=== PATIENT | female | born 1960 | race Caucasian/White ===

== ENCOUNTER 2025-02-10 20:28 | Inpatient (IN) | payer BC, SELFPAY ==
[2025-02-10] VITALS (9 sets, daily range): BP systolic 92–131; BP diastolic 53–69; PULSE 66–76; RESP 14–18; TEMP 36.7; O2SAT 95–99
--- OUTSIDE RECORDS SUMMARY | 2025-02-10 10:18 | XMS_ITS | Continuity of Care Document ---
Author Name [facility] Organization [facility] Care Team Providers Care Automatic Buffing Wheel Former Name Role Phone [facility] Unavailable Unavailable Problems Combined list of problems from Department of Defense and Veterans Affairs facilities. It does not include entries that were removed or entered in error. Problem Status Onset Date Problem Type Date of Resolution Comments Source Personal history of COVID-19 Inactive 08/02/2023 Condition DoD ALLERGIC RHINITIS Inactive 01/28/2016 Condition DoD Blood Pressure Isolated Elevated Inactive 01/28/2016 Condition DoD visit for: follow-up exam Inactive 01/20/2006 Condition visit for: follow-up exam DoD skin symptoms Inactive 01/19/2006 Condition skin symptom s DoD Encounters Combined list of: 1) Encounters from Department of Veterans Affairs facilities going backup to the last 18 months, not all VA inpatient encounters are included; 2) Encounters from the Department of Defense facilities going backup to 280 months. Location Location Details Encounter Type Encounter Number Reason For Visit Attending Provider ADM Date DC Date Status Disposition Source Theater Facility OUTPATIENT [id number] 01/19 Released w/o Limitations [facility] OUTPATIENT [id number] 01/20 Released w/o Limitations [facility] OUTPATIENT [id number] Theater Provider 01/27 Released w/o Limitations [facility] OUTPATIENT [id number] 6 Theater Provider 04/08 Sick at Home/Quarter s Theater Facilit y Social History Combined list of available smoking, tobacco, and other social history from Department of Defense and Veterans Affairs facilities. Social History Type Response Date Comment Sourc e This section is an empty social history section. DoD
--- OUTSIDE RECORDS SUMMARY | 2025-02-10 20:40 | XMS_ITS | Clinical Summary ---
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 Gender Identity Not on file Sexual Orientation Not on file Plan of Treatment Health Maintenance Due Date Last Done Comments Breast Cancer Screening-Mammogram 1960 Cervical Cancer Screening 1960 Colon Cancer Screening-Colonoscopy 1960 Depression Screening 1960 Hepatitis C Screening 1960 DTaP/Tdap/Td Vaccine (1 - Tdap) 1971 Hepatitis B Screening 1978 Regular Well Visit/Exam 18-64 1978 Zoster Vaccine (2 of 2) 09/07/2020 07/13/2020 Influenza Vaccine (#1) 2025 03/20/2019 Pneumococcal vaccine <65 Aged Out No longer eligible based on patient's age to complete this topic Insurance [facility] Care Teams Cooler Worker Relationship Specialty Start Date End Date Clinton Patricia MD PCP - General 07/24/18
--- OUTSIDE RECORDS SUMMARY | 2025-02-10 20:40 | XMS_ITS | Clinical Summary ---
Author Organization [facility] Address [address] [place] [address] Care Team Providers Care Solutions Delivery Consultant Name Role Phone Clinton Patricia MD Primary Care Provider [phone] Source Comments [facility],non-owned Affiliates and Associated Physician Practices is amultiple site organization consisting of ambulatory clinics and hospital sitesin [place], [place], [place] and [place]. This disclosure is being madepursuant to the Care Everywhere program and may not contain all information available regarding this patient. Last updated 18.[facility] Allergies Active Allergy Reactions Criticality Noted Date Comments Codeine Nausea and/or Vomiting 01/13/2011 Medications * Be aware that medications may not be up to date on this document. Alwaysverify current medications with the patient. valACYclovir (VALTREX) 1 GM tablet Take 2 tabs po bid x 1 day. Take first dose on am of procedure. 20 tablet 1 10/12/2018 Active Active Problems Problem Noted Date Diagnosed Date Menopause present 07/16/2019 Body mass index (bmi) 26.0-26.9, adult 9 Immunizations Immunization Administration Dates Next Due INFLUENZA VACCINE 03/20/2019 Family History Medical History Relation Name Comments Asthma Neg Hx CVA Neg Hx Cancer - Breast Neg Hx Cancer - Other Neg Hx Cancer - Skin, Melanoma Neg Hx Cancer - Skin, Non Melanoma Neg Hx Eczema Neg Hx Hemophilia Neg Hx Psoriasis Neg Hx Social History Tobacco Use Types Packs/Day Years Used Date Smoking Tobacco: Never Smokeless Tobacco: Never Alcohol Use Standard Drinks/Week Comments Yes 3 (1 standard drink = 0.6 oz pur e alcohol) Monthly Comments Unknown Sex and Gender Information Value Date Recorded Sex Assigned at Not on file 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 Gender Identity Not on file Sexual Orientation Not on file Plan of Treatment Health Maintenance Due Date Last Done Comments COLOGUARD (AGES 45-75) - COL ON CA SCREENING 1960 COLON MONITORING 1960 COLONOSCOPY - COLON CA SCREENING 1960 CT COLONOGRAPHY - COLON CA SCREENING 1960 Colorectal Cancer Screening 1960 FIT - COLON CA SCREENING 1960 FLEX SIG - COLON CA SCREENING 1960 LIPID TESTING 1960 MAMMOGRAM 1960 HIV SCREENING 1975 HEPATITIS C SCREENING 07/23/1978 DTAP/TDAP/TD VACCINES (1 - Tdap) 1979 PAP with HPV 1990 PNEUMOCOCCAL VACCINE 50+ (1 of 1 - PCV) 2010 ZOSTER VACCINE (1 of 2) 2010 COVID-19 VACCINE (1 - 2023-2 5 season) 2024 DEPRESSION SCREENING 06/20/2024 INFLUENZA VACCINE (#1) 2025 03/20/2019 Respiratory Syncytial Virus (RSV) Vaccine Pt: or over 60 yrs (1 - 1-dose 75+ series) 2035 HEPATITIS B VACCINE Aged Out No longe r eligible based on patient's age to complete this topic HIB VACCINE Aged Out No longer eligi ble based on patient's age to complete this topic HPV VACCINE Aged Out No longer eligi ble based on patient's age to complete this topic MENINGOCOCCAL (Group B) VACC INE SHARED DECISION-MAKING Aged Out No longer eligibl e based on patient's age to complete this topic MENINGOCOCCAL GROUPS A/C/Y/W VACCINE Aged Out No longer eligible b ased on patient's age to complete this topic Insurance [facility] Care Teams Solutions Delivery Consultant Relationship Specialty Start Date End Date Clinton Patricia MD [address] [place] [address] PCP - General 06/30/18
--- NOTE | 2025-02-10 20:56 | CTR_ITS ---
PROCEDURE INFORMATION: Exam: CT Abdomen And Pelvis With Contrast Exam date and time: 02/10/2025 9:28 PM Age: 64 years old Clinical indication: Abdominal pain; Localized; C/O severe lower abd pain TECHNIQUE: Imaging protocol: Computed tomography of the abdomen and pelvis with contrast. Radiation optimization: All CT scans at this facility use at least one of these dose optimization techniques: automated exposure control; mA and/or kV adjustment per patient size (includes targeted exams where dose is matched to clinical indication); or iterative reconstruction. Contrast material: OMNI 350; Contrast volume: 100 ml; Contrast route: INTRAVENOUS (IV); COMPARISON: No relevant prior studies available. RADIATION DOSE METRICS: Total DLP (mGy-cm): 500.58 FINDINGS: Lower chest: Heart size normal. Mild dependent atelectasis. A small fat containing Bochdalek's hernia right Liver: Normal. No mass. Gallbladder and biliary ducts: Normal. No calcified stones. Common bile duct measures a 6.7 mm in diameter within limits for patient's age. Pancreas: Normal. No ductal dilation. Spleen: Normal. No splenomegaly. 1.5 cm accessory splenic nodule Adrenal glands: Normal. No mass. Kidneys and ureters: 5.8 mm peripheral cysts mid right kidney. No follow-up imaging. 5.8 mm and a 3.3 mm nonobstructing calculi right kidney. 3.9 mm cyst mid left kidney Stomach and bowel: There is distension fundus and upper body of the stomach. This contains fluid. There is a small hiatal hernia containing fluid there is also fluid within a mildly distended distal esophagus. There is a twisting of the proximal junction of the body and antrum of the stomach. There is narrowing of the lumen this area there is partial obstruction proximally . There is wall thickening and thickened folds involving the antrum of the stomach with narrowing of the lumen. There is whirling of the small bowel loops mid and lower abdomen upper pelvis with wall thickening some surrounding stranding and possibly some interloop. Also in this area is a thickened loop sigmoid colon with surrounding stranding and fluid. Can not entirely pneumatosis There is mesenteric edema in this area. This is adjacent to the thickened loops of small bowel. Dilated cecum is seen in the mid abdomen with its base directed superiorly and to the left. Transverse colon, descending colon not distended. Rectum nondistended. Appendix: Not visualized. Intraperitoneal space: Unremarkable. No free air. No significant fluid collection. Vasculature: Mild atherosclerosis.. No abdominal aortic aneurysm. Lymph nodes: Unremarkable. No enlarged lymph nodes. Urinary bladder: Unremarkable as visualized. Reproductive: Multi fibroid uterus. Maybe some intrauterine Bones/joints: Degenerative Soft tissues: Unremarkable. CT/CT abdomen pelvis w con* [id number] IMPRESSION: Findings most consistent with possible internal hernia in the mid and lower abdomen and upper pelvis This contains small bowel, sigmoid colon and cecum. There are thickened loops of the small bowel and especially sigmoid colon. Sigmoid wall is markedly edematous. There is surrounding stranding and fluid and there maybe some pneumatosis . The antrum of the stomach is also involved. There is a twisting between the body and antrum narrowing partially obstructing stomach. Antrum has thickened wall. There is also reflux from the stomach into the esophagus. 3. Multi fibroid uterus. Centrally maybe mildly dilated intrauterine canal measuring 9 mm Nonemergent surgical consult recommended.
--- NOTE | 2025-02-10 20:58 | ED_ITS ---
HPI - Abdominal Pain 2 General: Chief Complaint: Abdominal Pain Stated Complaint: Lower ABD Pain Time Seen by Provider: 02/10/25 20:32 History of Present Illness: Patient is a 64-year-old female presenting with lower abdominal pain and bilateral flank pain that she describes as 'achy kidneys.' She reports having had kidney stones in the past and recognizes similar symptoms. Patient had fever yesterday. She describes constant headache and dysuria with urgency and difficulty voiding. After drinking cold water, she experienced 'super intense pain' in her bladder area that she rates as 10/10, which temporarily prevented her from standing. Pain has since decreased to 7/10. She denies hematuria, vomiting, or diarrhea. Patient reports a urine culture was collected earlier today, results pending. Related Data Home Medications ?Medication ?Instructions ?Recorded ?Confirmed atorvastatin 10 mg tablet (Lipitor) 10 mg PO DAILY 02/10/25 bisoprolol 2.5 1 tab PO DAILY 02/10/2501/19 4/25 mg-hydrochlorothiazide 6.25 mg tablet Previous Rx's ?Medication ?Instructions ?Recorded nitrofurantoin 100 mg PO Q12H 7 days #14 ca ps 02/10/25 monohydrate/macrocrystals 100 mg capsule (Macrobid) phenazopyridine 100 mg tablet 100 mg PO TID PRN pain 6 doses #6 02/10/25 (Pyridium) tabs Allergies Allergy/AdvReac Type Severity Reaction Status Date / Time codeine Allergy ADR-Vomitin Verified 02/10/25 20:43 g PFSH ED 2 PFSH: Social History Smoking and tobacco/nicotine status: never used tobacco/nicotine Physical Exam 2 Const: COMMON NORMALS: no acute distress GENERAL APPEARANCE: cooperative; not frail appearing HENMT: COMMON NORMALS: normocephalic, atraumatic and Normal external nose present HEAD & SCALP: normocephalic and atraumatic FACE & SINUS: normal facial exam and face symmetric NOSE: Normal external nose present Eye: COMMON NORMALS: Equal, round and reactive pupils present and EOMs intact bilaterally PUPIL: Yes Equal, round and reactive pupils present Neck/C-Spine: GENERAL: Yes trachea midline Chest: CHEST: Yes Symmetrical chest wall rise Resp: COMMON NORMALS: normal respiratory effort, No retractions, No use of accessory muscles and clear to auscultation bilaterally AUSCULTATION: clear to auscultation bilaterally Cardio: COMMON NORMALS: regular rate and regular rhythm RATE: regular rate RHYTHM: regular rhythm GI: COMMON NORMALS: Normal to inspection, nondistended, normoactive bowel sounds present PALPATION: Yes Tenderness to palpation present (GI) Details: LLQ and RLQ and Yes Guarding due to palpation present (GI) Extremity: COMMON NORMALS: no pedal edema Neuro: VERONICA COMA SCALE: document GCS findings Veronica coma scale eye opening: Spontaneous [place] coma scale verbal response: Orientated [place] coma scale motor response: Obey commands [place] coma scale total score: 15 S ENSORY EXAM: Yes extremities (intact) Psych: COMMON NORMALS: speech normal SPEECH: Yes normal speech Skin: COMMON NORMALS: no rashes or lesions noted GENERAL SKIN EXAM: no rashes or lesions noted Course 2 Vital Signs: Vital signs: Vital Signs Temperature 98.0 F 02/10/25 20:38 Pulse Rate 76 02/11/25 00:43 Respiratory Rate 14 02/11/25 00:12 Blood Pressure 137/54 02/11/25 00:43 Pulse Oximetry 96 02/11/25 00:43 Oxygen Delivery Me thod Room Air 02/11/25 00:12 MDM - Abdominal Pain Medical Decision Making Vitals have been stable. Pain improved after morphine Toradol and Zofran here. She received a liter bolus of fluid. Her CBC is not remarkable. Sodium is 130, bicarb is 20. Glucose 145. Abdominal pelvic CT shows thickened loops of small bowel especially sigmoid colon with sigmoid wall thickening and edema. This may be an internal hernia. Spoke with surgery. Dr. Callahan reviewed the images. With these findings, recommendations are to the OR for laparoscopy. Patient agrees. OR team has been called. He will come to evaluate the patient. Lab Data 02/10/25 21:03 02/10/25 21:03 Labs/Radiology: Radiology Impressions Abdomen/Pelvis CT 02/10/25 20:56 IMPRESSION: Findings most consistent with possible internal hernia in the mid and lower abdomen and upper pelvis This contains small bowel, sigmoid colon and cecum. There are thickened loops of the small bowel and especially sigmoid colon. Sigmoid wall is markedly edematous. There is surrounding stranding and fluid and there maybe some pneumatosis . The antrum of the stomach is also involved. There is a twisting between the body and antrum narrowing partially obstructing stomach. Antrum has thickened wall. There is also reflux from the stomach into the esophagus. 3. Multi fibroid uterus. Centrally maybe mildly dilated intrauterine canal measuring 9 mm Nonemergent surgical consult recommended. ADDENDUM: 02/11/25 0041 The impression should state emergent surgical consult recommended. This discussed with physician. COMMENT: THIS REPORT CONTAINS FINDINGS THAT MAY BE CRITICAL TO PATIENT CARE. The exam findings were verbally communicated by me to FLORENCIO LANGFORD via telephone conference at 12:39 AM CDT on 02/11/2025. The findings were acknowledged and understood. Laboratory Results WBC 9.92 10^3/uL (3.29-11.43) 02/10/25 21:03 RBC 4.24 10^6/uL (3.85-5.65) 02/10/25 21:03 Hgb 12.90 g/dL (11.27-16.99) 02/10/25 21:03 Hct 35.9 % (36-47) L 02/10/25 21:03 MCV 84.7 fl (85-98) L 02/10/25 21:03 MCH 30.4 pg (27-33) 02/10/25 21:03 MCHC 35.9 g/dL (30-55) 02/10/25 21:03 RDW 13.2 % (12.1-15.1) 02/10/25 21:03 Plt Count 220 10^3/cmm (157-399) 02/10/25 21:03 MPV 11.1 fL (7.4-10.4) H 02/10/25 21:03 Neut % (Auto) 84.4 % 02/10/25 21:03 Lymph % (Auto) 7.7 % 02/10/25 21:03 Riley % (Auto) 6.8 % 02/10/25 21:03 Eos % (Auto) 0.0 % 02/10/25 21:03 Baso % (Auto) 0.3 % 02/10/25 21:03 Neut # (Auto) 8.38 10^3/uL (1.8-7.7) H 02/10/25 21:03 Lymph # (Auto) 0.8 10^3/uL (0.8-4.8) 02/10/25 21:03 Riley # (Auto) 0.7 10^3/uL (0.2-0.9) 02/10/25 21:03 Eos # (Auto) 0.0 10^3/uL (0.0-0.8) 02/10/25 21:03 Baso # (Auto) 0.0 10^3/uL (0.0-0.1) 02/10/25 21:03 Nucleated RBC % (auto) 0 % 02/10/25 21:03 Nucleated RBCs # 0.0 /100WBC 02/10/25 21:03 Sodium 130 mmol/L (136-145) L 02/10/25 21:03 Potassium 3.6 mmol/L (3.5-5.1) 02/10/25 21:03 Chloride 93 mmol/L (98-107) L 02/10/25 21:03 Carbon Dioxide 20 mmol/L (22-29) L 02/10/25 21:03 Anion Gap 20.6 (5-19) H 02/10/25 21:03 BUN 8 mg/dL (8-23) 02/10/25 21:03 Creatinine 0.5 mg/dL (0.5-0.9) 02/10/25 21:03 GFR Calculation 124.2 mL/min (90-130) 02/10/25 21:03 Glucose 145 mg/dL (65-115) H 02/10/25 21:03 Calculated Osmolality 271 mOsm/kg (285-295) L 02/10/25 21:03 Lactic Acid 1.4 mmol/L (0.5-2.2) 02/10/25 21:03 Calcium 9.5 mg/dL (8.5-10.5) 02/10/25 21:03 Total Bilirubin 1.5 mg/dL (0.15-1.2) H 02/10/25 21:03 AST 76 U/L (0-32) H 02/10/25 21:03 ALT 85 U/L (0-33) H 02/10/25 21:03 Alkaline Phosphatase 87 U/L (35-105) 02/10/25 21:03 C-Reactive Protein 197.1 mg/L (0.0-4.9) H 02/10/25 21:03 Total Protein 7.4 g/dL (6.6-8.7) 02/10/25 21:03 Albumin 3.7 g/dL (3.5-5.2) 02/10/25 21:03 Globulin 3.7 g/dL (1.3-4.6) 02/10/25 21:03 Lipase 10 U/L (13-60) L 02/10/25 21:03 Urine Color [place] (Yellow) A 02/10/25 22:20 Urine Appearance Clear (CLEAR) 02/10/25 22:20 Urine pH 5.5 (5-7) 02/10/25 22:20 Ur Specific Bishop 1.072 (1.005-1.030) H 02/10/25 22:20 Urine Protein Trace (Negative) A 02/10/25 22:20 Urine Glucose (UA) Negative (Normal) 02/10/25 22:20 Urine Ketones 2+ (Negative) H 02/10/25 22:20 Urine Blood Negative (Negative) 02/10/25 22:20 Urine Nitrate Positive (Negative) A 02/10/25 22:20 Urine Bilirubin 1+ (Negative) H 02/10/25 22:20 Urine Urobilinogen 1.0 mg/dL (Negative) 02/10/25 22:20 Ur Leukocyte Esterase 1+ (Negative) A 02/10/25 22:20 Urine RBC 0-2 /hpf (0-2) 02/10/25 22:20 Urine WBC 0-5 /hpf (0-5) 02/10/25 22:20 Ur Squamous Epith Cells 0-5 /hpf (0-5) 02/10/25 22:20 Urine Bacteria None seen /hpf (NONE) 02/10/25 22:20 Hyaline Casts 0.81 /lpf 02/10/25 22:20 All radiology interpretation(s) finalized by discharge Discharge Plan Discharge Patient Disposition: Admitted As Inpatient Clinical Impression: Internal hernia Condition: Fair Coding Level of Care Code ED Agricultural Scientist for Neville Tamayo
[2025-02-10] MEDS: ondansetron 2 mg/ML SDV 2 mL 4 MG IVP (21:18)
[2025-02-10] MEDS: morphine 4 mg/mL SDV 1 mL IVP ×2 (21:18→23:06)
[2025-02-10] MEDS: iohexol 350 mg/mL 500 mL Btl (per mL) IV (21:30)
[2025-02-10 21:41] LABS: Hematocrit 35.9 % (36-47); Hemoglobin 12.90 g/dL (11.27-16.99); Mean Corpuscular HGB Conc 35.9 g/dL (30-55); Mean Corpuscular Hemoglobin 30.4 pg (27-33); Mean Corpuscular Volume 84.7 fl (85-98); Nucleated Red Blood Cells % 0 %; Platelet Count 220 10^3/cmm (157-399); Red Blood Count 4.24 10^6/uL (3.85-5.65); White Blood Count 9.92 10^3/uL (3.29-11.43)
[2025-02-10 21:56] LABS: Lactic Sepsis W/Reflex 1.4 mmol/L (0.5-2.2)
[2025-02-10 21:57] LABS: Alanine Aminotransferase 85 U/L (0-33); Albumin Level 3.7 g/dL (3.5-5.2); Alkaline Phosphatase 87 U/L (35-105); Anion Gap 20.6 (5-19); Aspartate Amino Transferase 76 U/L (0-32); Blood Urea Nitrogen 8 mg/dL (8-23); Calcium 9.5 mg/dL (8.5-10.5); Carbon Dioxide 20 mmol/L (22-29); Chloride 93 mmol/L (98-107); Creatinine Clr Calc Pharmacy 106.5563; Globulin 3.7 g/dL (1.3-4.6); Glucose 145 mg/dL (65-115); Lipase 10 U/L (13-60); Osmolality Calculated 271 mOsm/kg (285-295); Potassium 3.6 mmol/L (3.5-5.1); Sodium 130 mmol/L (136-145); Total Protein 7.4 g/dL (6.6-8.7)
[2025-02-10 22:36] LABS: Glucose Urine UA Negative (Normal); Nitrate Urine Positive (Negative)
[2025-02-10 22:42] LABS: Add Urine Microscopic? YES
[2025-02-11] VITALS (100 sets, daily range): BP systolic 81–186; BP diastolic 38–80; PULSE 55–110; RESP 12–26; TEMP 36.4–38.9; O2SAT 94–100; BMI 27.1
--- NOTE | 2025-02-11 00:04 | P.CONIM_ITS ---
History of Present Illness History of Present Illness Rola Palm is a 64 year old female Medications/Allergies Home Medications ?Medication ?Instructions ?Recorded ?Confirmed ?Last Taken ?Type atorvastatin 10 mg tablet (Lipitor) 10 mg PO DAILY 02/10/25 Unknown History bisoprolol 2.5 1 tab PO DAILY 02/10/2501/19 Unknown History mg-hydrochlorothiazide 6.25 mg tablet nitrofurantoin 100 mg PO Q12H 7 days #14 ca ps 02/10/25 02/10/25 Unknown Rx monohydrate/macrocrystals 100 mg capsule (Macrobid) phenazopyridine 100 mg tablet 100 mg PO TID PRN pain 6 doses #6 02/10/25 02/10/25 Unknown Rx (Pyridium) tabs Allergies Allergy/AdvReac Type Severity Reaction Status Date / Time codeine Allergy ADR-Vomitin Verified 02/10/25 20:43 g PFSH Acute 2 PFSH: Social History Smoking and tobacco/nicotine status: never used tobacco/nicotine Vitals/I&O/Wt Last Vital Signs Temp 98.0 F 02/10/25 20:38 Pulse 76 02/10/25 23:08 Resp 18 02/10/25 23:08 BP 128/63 02/10/25 23:08 Pulse Ox 95 02/10/25 23:08 O2 Del Method Room Air 02/10/25 23:08 02/10/25 02/10/25 02/11/25 14:59 22:59 06:59 Intake Total 1000 / 1000 Balance 1000 / 1000 Weight last 48 hrs Weight 154 lb Data 02/10/25 21:03 02/10/25 21:03 A&P PDMP PDMP Reviewed: Not Reviewed Coding Level of Care Code Acute Code for Chg Fwd
--- NOTE | 2025-02-11 00:05 | PM.HP ---
Providers/Chief Complaint Chief Complaint: Lower ABD Pain History of Present Illness Rola Palm is a 64 year old female no abdominal surgeries and no prior relevant medical history who presents with CT scan findings concerning with an internal hernia. Per radiology stomach, small bowel, colon may be involved.Patient reports suprapubic pain mostly. No nausea, no vomiting. Had a recent bowel movement. Passing gas. On exam abdomen is soft, tender suprapubically, mildly distended, not peritonitic. Medications/Allergies Home Medications ?Medication ?Instructions ?Recorded ?Confirmed ?Last Taken ?Type atorvastatin 10 mg tablet (Lipitor) 10 mg PO DAILY 02/10/25 02/10/25 Unknown History bisoprolol 2.5 1 tab PO DAILY 02/10/25 02/10/25 Unknown History mg-hydrochlorothiazide 6.25 mg tablet nitrofurantoin 100 mg PO Q12H 7 days #14 caps 02/10/25 02/10/25 Unknown Rx monohydrate/macrocrystals 100 mg capsule (Macrobid) phenazopyridine 100 mg tablet 100 mg PO TID PRN pain 6 doses #6 02/10/25 02/10/25 Unknown Rx (Pyridium) tabs Allergies Allergy/AdvReac Type Severity Reaction Status Date / Time codeine Allergy ADR-Vomitin Verified 02/10/25 20:43 g PFSH Acute PFSH: Social History Smoking and tobacco/nicotine status: never used tobacco/nicotine Vitals/I&O/Wt Last Vital Signs Temp 98.0 F 02/10/25 20:38 Pulse 76 02/10/25 23:08 Resp 18 02/10/25 23:08 BP 128/63 02/10/25 23:08 Pulse Ox 95 02/10/25 23:08 O2 Del Method Room Air 02/10/25 23:08 02/10/25 02/10/25 02/11/25 14:59 22:59 06:59 Intake Total 1000 / 1000 Balance 1000 / 1000 Weight last 48 hrs Weight 154 lb Physical Exam Narrative: Chest: Unlabored breathing room air. No lymphadenopathy. Heart: Regular rate and rhythm. Abdomen: Soft, suprapubic tenderness, nondistended. Nonperitoneal Data 02/10/25 21:03 02/10/25 21:03 A&P Assessment and plan 1. Internal hernia: Plan: 64-year-old female who presents with an internal hernia. Discussed risk and benefits and patient agreed to proceed with exploratory laparotomy, possible bowel resection, possible ostomy, possible ABThera. I had an extensive discussion with the patient and she understands that if there are large segments of bowel that are necrotic this may not be compatible with life. She also understands that she may need to be close temporarily for a couple days with an ABThera for reexploration. I have also explained that she is a risk of anastomotic leak and we perform a bowel resection with anastomosis given the emergent nature of the case. She understand that she may have a permanent ostomy depending on the extent of the nonviable bowel. Her spouse was not available for this discussion. PDMP PDMP Reviewed: Not Reviewed Attestations Medical Necessity Statement*: Internal hernia, possible bowel ischemia Coding Level of Care Code 79527 Diagnoses Internal hernia K45.8
[2025-02-11 00:10] LABS: Specific Gravity, Urine 1.072 (1.005-1.030)
[2025-02-11 00:13] LABS: UA Slide Review UA Slide Review Perf
[2025-02-11] MEDS: piperacillin-tazobactam 3.375 GM in sodium chloride 0.9% (plus) 50 ML IV (00:22)
--- NOTE | 2025-02-11 00:31 | ANES.PREANE2 ---
Pre-Anesthetic Assessment Height/Weight: Height 5 ft 3 in Weight 154 lb Temp Pulse Resp BP Pulse Ox O2 Del Method 98.0 F 77 14 147/68 98 Room Air 02/10/25 20:38 02/11/25 00:12 02/11/25 00:12 02/11/25 00:12 02/11/25 00:12 02/11/25 00:12 Preop Diagnosis: Incarcerated hernia Was Beta Raul taken within 24 hours: Yes Was Clonidine taken within 24 hours: N/A Exam alert, oriented x 3, clear to auscultation bilaterally and regular rate & rhythm Airway Submandibular: within normal limits Cervical ROM: within normal limits Mallampati: Class II Dentition: full Anesthetic Plan ASA status: 3E Anesthesia: General Other: Patient presents to the ER tonight with incarcerated hernia No prior issues with anesthesia NPO since 4 PM, ate yogurt. Patient states that she has not been throwing up and denies any nausea currently Untreated ARLEEN Hypertension on bisoprolol?HCTZ. Preop BP 147/68 Labs reviewed, hemoglobin 12.9, NA 130, K+ 3.6 Plan for GETA with RSI Patient has ICU bed Medications/Allergies Home Medications ?Medication ?Instructions ?Recorded ?Confirmed ?Last Taken ?Type atorvastatin 10 mg tablet (Lipitor) 10 mg PO DAILY 02/10/25 02/10/25 Unknown History bisoprolol 2.5 1 tab PO DAILY 02/10/25 02/10/25 Unknown History mg-hydrochlorothiazide 6.25 mg tablet nitrofurantoin 100 mg PO Q12H 7 days #14 caps 02/10/25 02/10/25 Unknown Rx monohydrate/macrocrystals 100 mg capsule (Macrobid) phenazopyridine 100 mg tablet 100 mg PO TID PRN pain 6 doses #6 02/10/25 02/10/25 Unknown Rx (Pyridium) tabs Allergies Allergy/AdvReac Type Severity Reaction Status Date / Time codeine Allergy ADR-Vomitin Verified 02/10/25 20:43 g Current Medications Generic Name Dose Route Start Last Admin Trade Name Freq PRN Reason Stop Dose Admin Lactated Ringer's 1,000 mls @ 125 mls/hr 02/11/25 00:15 02/11/25 00:27 Lactated Ringers IV 125 mls/hr .Q8H ORTEGA Administration Piperacillin Sod/Tazobactam 50 mls @ 100 mls/hr 02/11/25 00:15 02/11/25 00:22 Sod 3.375 gm/ Sodium Chloride IV 02/11/25 00:44 100 mls/hr ONCE ONE Administration Protocol PFS Anesthesia Social History Smoking and tobacco/nicotine status: never used tobacco/nicotine Data Anesthesia 02/10/25 21:03 02/10/25 21:03 Short CBC 02/10/25 Range/Units 21:03 WBC 9.92 (3.29-11.43) 10^3/uL Hgb 12.90 (11.27-16.99) g/dL Hct 35.9 L (36-47) % MCV 84.7 L (85-98) fl Plt Count 220 (157-399) 10^3/cmm Neut % (Auto) 84.4 % Neut # (Auto) 8.38 H (1.8-7.7) 10^3/uL BMP 02/10/25 21:03 Sodium 130 L Potassium 3.6 Chloride 93 L Carbon Dioxide 20 L BUN 8 Creatinine 0.5 Glucose 145 H Calcium 9.5 Liver Function 02/10/25 Range/Units 21:03 Total Bilirubin 1.5 H (0.15-1.2) mg/dL AST 76 H (0-32) U/L ALT 85 H (0-33) U/L Alkaline Phosphatase 87 (35-105) U/L Albumin 3.7 (3.5-5.2) g/dL Urine 02/10/25 Range/Units 22:20 Urine Color [place] A (Yellow) Urine Appearance Clear (CLEAR) Urine pH 5.5 (5-7) Ur Specific [place] 1.072 H (1.005-1.030) Urine Protein Trace A (Negative) Urine Glucose (UA) Negative (Normal) Urine Ketones 2+ H (Negative) Urine Nitrate Positive A (Negative) Urine Bilirubin 1+ H (Negative) Ur Leukocyte Esterase 1+ A (Negative) Urine RBC 0-2 (0-2) /hpf Urine WBC 0-5 (0-5) /hpf Coags 02/10/25 21:03 C-Reactive Protein 197.1 H
--- NOTE | 2025-02-11 02:01 | P.BOP_ITS ---
Date of Procedure: 02/11/2025 Surgeon: Dr. Callahan Book Canvasser(s): N/A Procedure(s) performed: Exploratory laparotomy, reduction of internal hernia, abdominal washout, temporary closure with ABThera. Findings of the procedure(s): Internal hernia with a 40cm segment of ischemic bowel secondary to a pericolonic abscess secondary to sigmoid diverticulitis. Sent cultures from the OR. Washed out the abdomen with 4 L of warm normal saline. Ran bowel 5 times from cecum to ligament of Treitz. Small bowel pinked up appropriately and appeared viable at end of case. Inspected cecum, ascending colon, transverse colon, descending colon, sigmoid colon, and rectum which all appeared viable. She does have a segment of sigmoid diverticulitis without william perforation. The stomach and duodenum were also viable. Confirmed NG tube positioning in the stomach intraoperatively. Decided to close temporarily with an ABThera to examine the small bowel in the sigmoid colon in 24 to 48 hours to ensure she does not need a small bowel resection or a Vale's procedure. Estimated blood loss: 20cc Specimen(s) removed: Culture sent to microbiology from intra-abdominal abscess Post-operative diagnosis: Internal hernia secondary to a pericolonic abscess secondary to sigmoid diverticulitis
--- NOTE | 2025-02-11 02:06 | ANE.PACU2 ---
Inpatient post-anesthesia follow up: Airway intact: Yes Vital signs: Temperature 97.5 F Pulse Rate 61 Respiratory Rate 12 Blood Pressure 101/52 Pulse Oximetry 99 Oxygen Delivery Me thod Mechanical Ventila tion Oxygen Flow Rate Fraction of Inspir ed Oxygen 30 Hydration adequate: Yes Nausea and vomiting: No Pain level: Other (intubated and sedated) Mental status: Baseline Additional Comments: patient remains intubated and sedated with plans to return to OR Wed.
--- NOTE | 2025-02-11 02:07 | PM.OP ---
Operative Report Date of procedure: February 11, 2025 Surgeon: [place] Callahan MD Related Problem List Diagnoses 1. Diverticulitis of both large and small intestine with abscess: 2. Internal hernia: 3. Abdominal abscess:
--- NOTE | 2025-02-11 02:14 | P.MISC_ITS ---
Miscellaneous Note Note: Spouse updated
--- NOTE | 2025-02-11 02:14 | PM.MISC ---
Miscellaneous Note Note: Spouse updated
--- NOTE | 2025-02-11 02:19 | XRR_ITS ---
PROCEDURE INFORMATION: Exam: XR Chest Exam date and time: 02/11/2025 2:27 AM Age: 64 years old Clinical indication: Device placement; Ett placement (vent status); Prior surgery; Surgery date: Post-operative (0-2 days); Surgery type: Exploratory abdominal surgery this a. M. Check S/P ett and og placement. ; Additional info: Ng placement and vent TECHNIQUE: Imaging protocol: Radiologic exam of the chest. Views: 1 view. COMPARISON: CT abdomen pelvis w con* [id number] 02/10/2025 9:28 PM FINDINGS: Tubes, catheters and devices: Endotracheal tube with the tip projecting 2.9 cm above the emerson. Enteric tube coursing the esophagus and gastroesophageal junction, terminating within the lateral stomach. Lungs: Unremarkable. No consolidation. Pleural spaces: Unremarkable. No pleural effusion. No pneumothorax. Heart/Mediastinum: Unremarkable. No cardiomegaly. Bones/joints: Unremarkable. Gastrointestinal tract: Nonspecific upper abdominal bowel gas pattern. XR/XR chest 1V portable [id number] IMPRESSION: Endotracheal and enteric tubes in satisfactory position.
[2025-02-11] MEDS: midazolam hcl 100 MG/100 ML BAG IV ×2 (02:30→21:19)
[2025-02-11] MEDS: fentaNYL 1,000 MCG/100 ML BAG 2.5 MCG IV (02:30)
[2025-02-11] MEDS: propofol 1,000 MG/100 ML INJ 8.38 MG IV (02:55)
--- NOTE | 2025-02-11 03:14 | PC.NURSE ---
Patient arrived from OR to ICU 4. Surgeon and hospitalist at bedside. Surgeon stated he does not want patient to be able to move Hospitalist at bedside and gave verbal orders for all drips and to titrate per MAR in order to sedate patient properly. Patient was awake, eyes open, attempting to move legs, and blinked eyes in response to being asked if she was in pain by hospitalist.
[2025-02-11 03:26] LABS: ABG PCO2 34.6 mmHg (35-45); ABG PH Result 7.46 (7.35-7.45); Alveolar-Arterial Oxygen Gradi 14.3 mmHg (5-10); Arterial Blood Gas Hematocrit 32.1 % (37-47); Blood Gas Allen Test Pos; Blood Gas Operator Identificat BD; Blood Gas Sample Site Brachial, right; Blood Gas Sample Type Arterial; Blood Gas Tidal Volume 0.40; Carboxyhemoglobin 1.1 %THgb (0.4-20.1); Glucose Level-ABG 132.0 mg/dL (70-115); HCO3 ABG 24.3 mmol/L (22-26); Ionized Calcium Level - ABG 1.2 mmol/L (1.1-1.4); Methemoglobin 0.8 % (0.4-1.5); Oxygen Saturation ABG > 99.1; PEEP 5.0 cmH20; PO2 ABG 131.0 mmHg (80.0-100.0); PO2 FiO2 Ratio Arterial Blood 327; Potassium Level - ABG 3.6 mmol/L (3.5-5.0); Sodium Level - ABG 135.0 mmol/L (131-143)
[2025-02-11] MEDS: norepinephrine 4 MG/250 ML BAG 7.5 MG IV (03:27)
--- NOTE | 2025-02-11 04:03 | XRR_ITS ---
PROCEDURE INFORMATION: Exam: XR Chest Exam date and time: 02/11/2025 2:27 AM Age: 64 years old Clinical indication: Other vascular access device placement or adjustment; Central line, non-tunnelled; Check S/P central line placement TECHNIQUE: Imaging protocol: Radiologic exam of the chest. Views: 1 view. COMPARISON: CR (CHEST, ) 02/11/2025 2:27 AM FINDINGS: Tubes, catheters and devices: Right central catheter terminates near the atriocaval junction probably just within the right atrium. Endotracheal and gastric tubes unchanged. They are in satisfactory position. Lungs: Unremarkable. No consolidation. Pleural spaces: Unremarkable. No pleural effusion. No pneumothorax. Heart/Mediastinum: No change in the heart or mediastinum. Bones/joints: Unremarkable. XR/XR chest 1V portable [id number] IMPRESSION: Life support lines as described above.
--- NOTE | 2025-02-11 04:05 | PM.CCN ---
Critical Care Event Note Called to the bedside in ICU. Hospitalist asking for central line placement due to multiple drips coming out of the OR for this patient. Right IJ line placed without complication. See procedure note. X-ray confirms placement. Critical Care Time Code activated: No Critical Care Time (min): 0 Procedures Central Line Placement^ Right IJ: Time out performed: No Patient placed on monitor/pulse ox: Yes MD prep: mask, gown and gloves Central line prep: Chlorhexidine scrub and sterile drapes applied Local anesthesia used: lidocaine 1% Amount of anesthesia used (ml): 3 Ultrasound used for placement: Yes Central line lumen inserted: triple Post procedure: sutured in place, good blood return, all ports aspirated, flushed, capped and sterile dressing applied Post procedure x-ray: tip of catheter in good position and no pneumothorax seen Patient tolerated procedure: well and no complications Complications: none Coding Level of Care Code Acute Code for Neville Fwjamil
--- NOTE | 2025-02-11 04:23 | PM.CONSULT ---
Providers/Reason For Consult Consulting Physician/Specialty*: PATIENCE ASHU DO /HOSPITALIST Reason for Consult*: MEDICAL MANAGENT FOR abscessed diverticula/diverticulitis/ischemic colon Requesting Physician: KAILA FERRELL MD/SURGERY Attending Physician: Kaila Ferrell MD History of Present Illness History of Present Illness Rola Palm is a 64 year old female with no significant medical history who presented to the emergency room with complaints of lower abdominal pain that was presumed to be due to UTI and patient was placed on antibiotics out patient. Patient was not doing well and had taken a sip of water today with an excruciating pain at 10/10 for this reason patient came to the emergency room. CT scan was done and it was documented as an internal hernia. Surgery was consulted with Dr. Ferrell who looked at the CT and suspected an abscess. Patient was taken down to the surgery emergently. After the surgery Dr. Ferrell consulted hospitalist for medical management. Patient was intubated under general anesthesia during surgery abdomen was marked closed abscess was removed with some partial colectomy with abdominal washout. Patient while in the emergency room received a liter of normal saline and a dose of Zosyn at 3.375 g. In the surgery patient received another liter of fluid with lactated Ringer's and a dose of Ancef antibiotics I was consulted urgently as patient was being wheeled from the OR to ICU room for for an emergent medical management. Patient intubated abdomen not close of patient needing ICU level of care with sedation not to move for the next 48 hours till patient is going to go back into the OR to reassess the colon make sure that the colon is fine. I have seen and evaluated patient emergently spent 1 and half hours by the bedside monitoring the hemodynamics with blood pressure as patient needs sedation. Patient placed on Versed maxed out. Patient on fentanyl at 150 mics per hour. Patient was still waking up propofol was initiated blood pressure was getting soft in the 80s a liter of normal saline given bolus this is not able to hold Levophed initiated. It was been noted that in the OR postsurgery blood pressure dropped to 70s and patient had to be given a dose of silverio. At this time patient is having 5 IV pumps Infusing Levophed, fentanyl, Versed, propofol, IV fluid and blood pressure was stabilizing with MAP above 65. It becomes necessary to have a central line with the Levophed on board. Central line established. Blood culture x 4 sets ordered in ICU, lab studies with CMP, CBC, lactate, sed rate, magnesium and phosphorus, patient was given a loading dose of vancomycin 1500 mg for pharmacy to dose and treat. Pharmacy was communicated. Meropenem ordered at 1 g IV Q8. Patient was notably vomited after being intubated but it was not thought to have aspirated in the OR. In the setting abscessed colon from diverticular abscess becomes important to have a broad-spectrum antibiotics covering gram-negative and anaerobic's that we will be were taking care of with meropenem in the setting and vancomycin be in place because gram-positive can play a role also. On presentation patient had no white count but lecture on patient clinical profile warrants blood culture and all other aggressive process to have the patient taking good care of. Review of Systems Narrative: System review upon 10 organ reviewed we are somewhat limited because patient is sedated though initially able to open eyes verbalized pain although was review of system was limited. Medications/Allergies Home Medications ?Medication ?Instructions ?Recorded ?Confirmed ?Last Taken ?Type atorvastatin 10 mg tablet (Lipitor) 10 mg PO DAILY 02/10/25 02/10/25 Unknown History bisoprolol 2.5 1 tab PO DAILY 02/10/25 02/10/25 Unknown History mg-hydrochlorothiazide 6.25 mg tablet nitrofurantoin 100 mg PO Q12H 7 days #14 caps 02/10/25 02/10/25 Unknown Rx monohydrate/macrocrystals 100 mg capsule (Macrobid) phenazopyridine 100 mg tablet 100 mg PO TID PRN pain 6 doses #6 02/10/25 02/10/25 Unknown Rx (Pyridium) tabs Allergies Allergy/AdvReac Type Severity Reaction Status Date / Time codeine Allergy ADR-Vomitin Verified 02/10/25 20:43 g Current Medications Generic Name Dose Route Start Last Admin Trade Name Freq PRN Reason Stop Dose Admin Lactated Ringer's 1,000 mls @ 125 mls/hr 02/11/25 00:15 02/11/25 02:00 Lactated Ringers IV 0 mls/hr .Q8H ORTEGA Infusion Fentanyl 1,000 mcg in 100 mls @ 0 mls/hr 02/11/25 02:30 02/11/25 03:07 Sublimaze IV 150 mcg/hr .Q0M ORTEGA 15 mls/hr Protocol Titration Per Protocol Midazolam HCl 100 mg in 100 mls @ 0 mls/hr 02/11/25 02:30 02/11/25 03:10 Versed IV 6 mg/hr .Q0M ORTEGA 6 mls/hr Protocol Titration Per Protocol Propofol 1,000 mg in 100 mls @ 0 mls/hr 02/11/25 02:30 02/11/25 02:55 Diprivan IV 20 mcg/kg/min .Q0M ORTEGA 8.38 mls/hr Protocol Administration Per Protocol Sodium Chloride 1,000 mls @ 100 mls/hr 02/11/25 02:30 02/11/25 03:12 Sodium Chloride 0.9% IV 100 mls/hr .Q10H ORTEGA Administration Norepinephrine Bitartrate 4 mg in 250 mls @ 0 mls/hr 02/11/25 02:30 02/11/25 03:31 Levophed IV 4 mcg/min .Q0M ORTEGA 15 mls/hr Protocol Titration Per Protocol PFSH Acute PFSH: Social History Smoking and tobacco/nicotine status: never used tobacco/nicotine Vitals/I&O/Wt Last Vital Signs Temp 97.5 F L 02/11/25 03:45 Pulse 61 02/11/25 03:45 Resp 12 02/11/25 03:56 BP 108/55 02/11/25 03:45 Pulse Ox 99 02/11/25 03:56 O2 Del Method Mechanical Ventilation 02/11/25 03:45 FiO2 30 02/11/25 03:56 02/10/25 02/10/25 02/11/25 14:59 22:59 06:59 Intake Total 1000 / 1000 248.542 / 1248.542 Balance 1000 / 1000 248.542 / 1248.542 Weight last 48 hrs Weight 69.5 kg Weight 69.853 kg Physical Exam Narrative: Generally patient is relaxed but needed to be heavily sedated Patient intubated arriving in ICU sedated with fentanyl Versed and propofol HEENT normocephalic/atraumatic - Intubated with vent management TV 500/RR-14/PEEP-5/FiO2-40% Neck neck is supple Cardiovascular-heart rate is regular at average of 60s Lungs-lungs are clear, intubated Abdomen-soft, surgical abdomen with midline wound on close bed hooked to Wound VAC and draining serosanguineous material, no bowel sounds at this time -Cope to gravity draining clear urine, [place] yellow in color due to Pyridium outpatient Extremity well with no significant examination, no swelling has good pulses Neurology-nonfocal by the assessment of initial time prior to much sedation Patient able to verbalize needs such pain. Poor pills react to light at 4 mm pulpill gauge Urinary Catheter Management: Cope Latex: Cath Placed During This Visit: yes Urinary Catheter Date of Insertion: 02/11/25 Urinary Catheter Time of Insertion: 01:22 Data 02/10/25 21:03 02/10/25 21:03 ABG Interpretation 1: Textbook normal ABG My Interpretation: Text book normal ABG Other data: CT of abdomen and pelvics significant for abscessed diverticulitis A&P Assessment and plan 1. Abdominal abscess: 2. Diverticulitis of both large and small intestine with abscess: 3. Lower abdominal pain: 4. Hypotension after procedure: Plan: #1 Diverticulitis with colonic abscess and ischemia - Status post surgery by surgical team the primary team Dr. Ferrell - Hospitalist management for medical management continues upon resection of patient in ICU - Patient sedated with Versed and fentanyl and this was not enough, propofol added - Patient cannot move abdominal wound is not closed nasal NG hooked to low intermittent suction - Monitoring of hemodynamics was very closely maintaining good blood pressure in the setting of hypotension - Patient kept normotensive to perfuse surgical organ and to maintain good renal function - IV fluid and Levophed in place - Blood culture ordered and inflammatory markers ordered - Loading dose of vancomycin at 1500 mg for pharmacy to dose and manage - Meropenem in place - Strict n.p.o. - Right nasal NG tube to low intermittent wall suction - Strict bed rest until patient is taken back to the OR in 48 to 72 hours from now per surgery communication #2 Colonic abdominal abscess - Status post removal of abscess and partial colectomy with washout by surgery - Medical management by hospitalist follows with panculturing with blood - Antibiotics follows with vancomycin and meropenem - Patient did not have white count on presentation follow-up with lab studies - Maintain n.p.o. - Patient is with strict bedrest and not to be moved, surgical abdomen unclosed with a plan to revisit By surgery for status of colonic health prior to closing in 48 to 72 hours #3 Hypotension - Managed with a trial of bolus of IV normal saline at 1 L - Patient had had prior 1 L in the ED and another 1 L in the OR making a total of 3 L - Not enough but optimized with Levophed patient now stays normotensive #4 Lower abdominal pain - Secondary to diverticular abscess followed by surgical repair - Fentanyl IV drip to ease the pain and provide sedation #5 GI and DVT prophylaxis in place PDMP PDMP Reviewed: Last Reviewed 02/11/25 05:28 by Ai Santos MD Consult Attestations Medical Necessity Statement: Patient is with much medical acute problems postsurgery of an abscess with an open closed abdominal wound to reassess back in the OR after 48 to 72 hours will need at least 2 midnight stay in the hospital for further optimization of care patient meets inpatient criteria Critical Care Time: 1 hour and 30 minutes Coding Level of Care Code 93496 Diagnoses Abdominal abscess Diverticulitis of both large and small intestine with abscess K57.40 Lower abdominal pain R10.30 Hypotension after procedure I95.81 Time Spent (min) 90 Critical care time (in minutes): 90
[2025-02-11 05:27] LABS: Hematocrit 30.1 % (36-47); Hemoglobin 9.90 g/dL (11.27-16.99); Mean Corpuscular HGB Conc 32.9 g/dL (30-55); Mean Corpuscular Hemoglobin 30.0 pg (27-33); Mean Corpuscular Volume 91.2 fl (85-98); Platelet Count 209 10^3/cmm (157-399); Red Blood Count 3.30 10^6/uL (3.85-5.65); White Blood Count 5.38 10^3/uL (3.29-11.43)
[2025-02-11 05:52] LABS: Lactate (Lactic Acid level) 0.9 mmol/L (0.5-2.2)
[2025-02-11 05:55] LABS: Alanine Aminotransferase 60 U/L (0-33); Albumin Level 3.2 g/dL (3.5-5.2); Alkaline Phosphatase 70 U/L (35-105); Anion Gap 14.4 (5-19); Aspartate Amino Transferase 44 U/L (0-32); Blood Urea Nitrogen 8 mg/dL (8-23); Calcium 8.1 mg/dL (8.5-10.5); Carbon Dioxide 23 mmol/L (22-29); Chloride 101 mmol/L (98-107); Creatinine Clr Calc Pharmacy 106.3029; Globulin 2.5 g/dL (1.3-4.6); Glucose 129 mg/dL (65-115); Magnesium 1.6 mg/dL (1.7-2.3); Osmolality Calculated 280 mOsm/kg (285-295); Potassium 3.4 mmol/L (3.5-5.1); Sodium 135 mmol/L (136-145); Total Protein 5.7 g/dL (6.6-8.7)
[2025-02-11 06:11] LABS: CRP High Sensitivity Cardiac 26.710 mg/dL (0.0-0.3)
[2025-02-11] MEDS: pantoprazole 40 mg SDV IVP ×2 (06:24→17:02)
--- NOTE | 2025-02-11 07:17 | PHA.VACGOAL ---
Vancomycin Goal - Goal Vancomycin Goal:: 15-20 mg/L Vancomycin Indication:: Other (DIVERTICULITIS) - Therapy Current therapy:: Meropenem Day of therpy:: Day []of [] . Actual body weight (kg): 153 lb 3.54 oz - Data Labs: WBC 9.92 10^3/uL (3.29-11.43) 02/10/25 21:03 RBC 4.24 10^6/uL (3.85-5.65) 02/10/25 21:03 Hgb 12.90 g/dL (11.27-16.99) 02/10/25 21:03 Hct 35.9 % (36-47) L 02/10/25 21:03 MCV 84.7 fl (85-98) L 02/10/25 21:03 MCH 30.4 pg (27-33) 02/10/25 21:03 MCHC 35.9 g/dL (30-55) 02/10/25 21:03 RDW 13.2 % (12.1-15.1) 02/10/25 21:03 Sodium 135 mmol/L (136-145) L 02/11/25 04:07 Potassium 3.4 mmol/L (3.5-5.1) L 02/11/25 04:07 Chloride 101 mmol/L (98-107) 02/11/25 04:07 Carbon Dioxide 23 mmol/L (22-29) 02/11/25 04:07 Anion Gap 14.4 (5-19) 02/11/25 04:07 BUN 8 mg/dL (8-23) 02/11/25 04:07 Creatinine 0.5 mg/dL (0.5-0.9) 02/11/25 04:07 GFR Calculation 124.2 mL/min (90-130) 02/11/25 04:07 Last dialysis session:: N/A Treatment plan:: new consult Regimen:: LOADING DOSE OF 1500 MG X 1 MAINTENANCE DOSE OF 1000 MG Q12H PER TELEPHARMACY Follow up:: WILL CONTINUE TO MONITOR AND FOLLOW UP DAILY
[2025-02-11 07:43] LABS: Absolute Segmented Neutrophil 3.0 10/cmm (1.6-7.1); Atypical Lymphs 1.0 % (0-5); Band Neutrophils Absolute 1.7 10^3/cmm (0.0-1.2); Total Cells Counted 100 (0-100)
[2025-02-11] MEDS: meropenem 1,000 mg SDV 1000 MG IVP ×3 (07:52→23:00)
--- NOTE | 2025-02-11 09:08 | P.PN_ITS ---
Subjective 2 Subjective: Patient seen in the morning, currently on sedation with propofol fentanyl and midazolam On Levophed at 2 mics Patient s/p laparotomy by the surgery team due to diverticulitis with colonic abscesses and ischemia, currently doing well on wound suction draining serosanguineous fluid Vitals/I&O/Wt Last Vital Signs Temp 97.5 F L 02/11/25 03:45 Pulse 70 02/11/25 07:45 Resp 12 02/11/25 07:42 BP 155/73 02/11/25 07:45 Pulse Ox 98 02/11/25 07:45 O2 Del Method Mechanical Ventilation 02/11/25 03:45 FiO2 30 02/11/25 07:42 02/10/25 02/11/25 02/11/25 22:59 06:59 14:59 Intake Total 1000 / 1000 283.722 / 1283.722 551.333 / 551.333 Output Total 555 / 555 Balance 1000 / 1000 -271.278 / 728.722 551.333 / 551.333 Weight last 48 hrs Weight 69.5 kg Weight 69.5 kg Weight 69.853 kg Physical Exam 2 Narrative: General: Patient seen sedated and on mechanical ventilation HEENT: Normocephalic, atraumatic, breathing through mechanical ventilation at minimal settings with FiO2 of 30% and good tidal volumes Cardio: Regular rate rhythm, normal S1-S2, no murmurs rubs gallops, JVD normal Respiratory: Good bilateral air entry through mechanical ventilation, no wheezes no rhonchi appreciated GI: Abdomen soft, with ABThera in place draining serosanguineous, no distention found and normal bowel sounds Neuro: Unable to assess as the patient is on sedation Behavior: Patient on sedation Extremities: Pulses 2+, no edema, no cyanosis, mild pallor positive Skin: Grossly unremarkable exam Urinary Catheter Management: Cope Latex: Cath Placed During This Visit: yes Reason for Continuing Indwelling Catheter: Accurate Measurement of Urinary Output in Critically Ill Patients Urinary Catheter Date of Insertion: 02/11/25 Urinary Catheter Time of Insertion: 01:22 Data 02/11/25 04:07 02/11/25 04:07 Micro: Microbiology 02/11/25 06:33 Blood Culture - Preliminary Blood SPECIMEN COLLECTED 02/11/25 06:26 Blood Culture - Preliminary Blood SPECIMEN COLLECTED 02/11/25 04:07 Blood Culture - Preliminary Blood SPECIMEN COLLECTED 02/11/25 04:06 Blood Culture - Preliminary Blood SPECIMEN COLLECTED A&P Assessment and plan 1. Abdominal abscess: 2. Diverticulitis of both large and small intestine with abscess: 3. Lower abdominal pain: 4. Hypotension after procedure: Plan: Diverticulitis with colonic abscess and ischemia - Status post surgery by surgical team the primary team Dr. Callahan - Hospitalist management for medical management continues - Patient sedated with Versed fentanyl and propofol, to taper down sedation slowly with evaluation of patient neurological status and agitation accordingly - Blood culture ordered, preliminary negative - Continue vancomycin and meropenem, and then tailor according to cultures and patient's clinical status - N.p.o. and NGT to suction - Continue adequate analgesia Hypotension/on Levophed currently better - Currently on Levophed and to continue with the MAP target above 65, taper down sedation since it can affect the blood pressure, and with respect to MAP also titrate Levophed - Patient kept normotensive to perfuse surgical organ and to maintain good renal function Daily spontaneous awakening and breathing trial to wean off from the vent slowly Patient when ready to extubate, then subsequently OT PT eval, early mobilization and incentive spirometry to introduce Nutrition to introduce once cleared by the surgery PDMP PDMP Reviewed: Not Reviewed Attestations 2 Medical Necessity Statement*: Patient will stay as per discussion with the primary team for the management of chronic abscess s/p laparotomy, currently intubated and sedated Time Spent in Patient Care: 16 - 35 minutes (>than 50% of time sp ent in counselling and/or direct pt care on unit) . Critical Care Time: The high probability of a clinically significant, sudden or life threatening deterioration of the patient's [] system(s) required my full and direct attention, intervention and personal management. The critical care time is as shown. This time is in addition to time spent performing any reported procedures but includes the following: [x] Data and vital sign review and interpretation [x] Patient assessment, examination and intervention [x] Documentation [x] Medication orders and management Critical Care Time (min): 35 Coding Level of Care Code Critical Care >/= 30 minutes Diagnoses Abdominal abscess Diverticulitis of both large and small intestine with abscess K57.40 Lower abdominal pain R10.30 Hypotension after procedure I95.81
--- NOTE | 2025-02-11 11:23 | P.PN_ITS ---
Subjective 2 Subjective: ABThera: Serous output No leukocytosis Sedated intubated On and off pressors related to sedation Vitals/I&O/Wt Last Vital Signs Temp 97.5 F L 02/11/25 03:45 Pulse 83 02/11/25 11:00 Resp 17 02/11/25 11:00 BP 104/44 02/11/25 11:00 Pulse Ox 96 02/11/25 11:00 O2 Del Method Mechanical Ventilation 02/11/25 11:00 FiO2 30 02/11/25 11:00 02/10/25 02/11/25 02/11/25 22:59 06:59 14:59 Intake Total 1000 / 1000 283.722 / 1283.722 983.249 / 983.249 Output Total 555 / 555 100 / 100 Balance 1000 / 1000 -271.278 / 728.722 883.249 / 883.249 Weight last 48 hrs Weight 153 lb 3.54 oz Weight 153 lb 3.54 oz Weight 154 lb Physical Exam 2 Narrative: Chest: On vent Heart: Regular rate and rhythm. Abdomen: Soft, ABThera with serous output Urinary Catheter Management: Cope Latex: Cath Placed During This Visit: yes Reason for Continuing Indwelling Catheter: Accurate Measurement of Urinary Output in Critically Ill Patients Urinary Catheter Date of Insertion: 02/11/25 Urinary Catheter Time of Insertion: 01:22 Data 02/12/25 03:15 02/12/25 03:15 Micro: Microbiology 02/11/25 06:33 Blood Culture - Preliminary Blood SPECIMEN COLLECTED 02/11/25 06:26 Blood Culture - Preliminary Blood SPECIMEN COLLECTED 02/11/25 04:07 Blood Culture - Preliminary Blood SPECIMEN COLLECTED 02/11/25 04:06 Blood Culture - Preliminary Blood SPECIMEN COLLECTED A&P Assessment and plan 1. Diverticulitis of both large and small intestine with abscess: 2. Abdominal abscess: 3. Internal hernia: Plan: 64-year-old female status post ex lap temporarily closed. Keep intubated and sedated until reexploration on 02/12/2025. PDMP PDMP Reviewed: Not Reviewed Attestations 2 Medical Necessity Statement*: N/A Coding Level of Care Code 27246 Diagnoses Diverticulitis of both large and small intestine with abscess K57.40 Abdominal abscess Internal hernia K45.8
[2025-02-11] MEDS: acetaminophen 1,000 MG/100 ML PIGGYBACK 400 MG IV (15:10)
--- NOTE | 2025-02-11 15:20 | PC.NURSE ---
Fever - Patietn developed a fever of 102.1... Nurse attempted to alert Primary Dr medina but was unable to reach him. Nurse alerted Dr phelan hospitalist, received orders for IV tylenol and repeat blood cultures.
--- NOTE | 2025-02-11 18:30 | PC.NURSE ---
SHift SUmmary: Uneventful shift Rested in bed throughout the day. Frequently turned. Was able to wean off of propofol, and reduce versed from 6mg/hr down to 3mg/hr. Patient grimaces, guards abdomen, and has hypertension when fentanyl is lower than 150mcg. Fever: high as 102.1. came down to 98.1 after IV acetaminophen given. Another set of blood cultures was drawn after fever development. Outputs: Urine: 425 - urine output has started to slow down near end of shift. Gastric/nare: 100 Abdominal wound vac: 125 serousanguinous (increasingly serous)
[2025-02-11] MEDS: norepinephrine 4 MG/250 ML BAG 15 MG IV (22:17)
[2025-02-12] VITALS (104 sets, daily range): BP systolic 83–154; BP diastolic 42–71; PULSE 55–107; RESP 12–25; TEMP 36.3–39.1; O2SAT 96–100
[2025-02-12 03:49] LABS: Hematocrit 32.5 % (36-47); Hemoglobin 10.50 g/dL (11.27-16.99); Mean Corpuscular HGB Conc 32.3 g/dL (30-55); Mean Corpuscular Hemoglobin 30.3 pg (27-33); Mean Corpuscular Volume 93.9 fl (85-98); Nucleated Red Blood Cells % 0 %; Platelet Count 216 10^3/cmm (157-399); Red Blood Count 3.46 10^6/uL (3.85-5.65); White Blood Count 8.00 10^3/uL (3.29-11.43)
[2025-02-12 04:08] LABS: Slide Review Slide Review Perform
[2025-02-12 04:12] LABS: Alanine Aminotransferase 40 U/L (0-33); Albumin Level 2.9 g/dL (3.5-5.2); Alkaline Phosphatase 107 U/L (35-105); Anion Gap 13.1 (5-19); Aspartate Amino Transferase 24 U/L (0-32); Blood Urea Nitrogen 7 mg/dL (8-23); Calcium 8.2 mg/dL (8.5-10.5); Carbon Dioxide 21 mmol/L (22-29); Chloride 108 mmol/L (98-107); Creatinine Clr Calc Pharmacy 132.8786; Globulin 3.3 g/dL (1.3-4.6); Glucose 98 mg/dL (65-115); Osmolality Calculated 284 mOsm/kg (285-295); Potassium 4.1 mmol/L (3.5-5.1); Sodium 138 mmol/L (136-145); Total Protein 6.2 g/dL (6.6-8.7)
[2025-02-12] MEDS: pantoprazole 40 mg SDV IVP ×2 (05:00→18:01)
[2025-02-12] MEDS: meropenem 1,000 mg SDV 1000 MG IVP ×2 (07:46→15:49)
--- NOTE | 2025-02-12 08:38 | P.PN_ITS ---
Subjective 2 Subjective: Off pressors today No leukocytosis ABThera: Serous output Family at bedside Vitals/I&O/Wt Last Vital Signs Temp 99.9 F H 02/12/25 04:45 Pulse 71 02/12/25 06:00 Resp 13 02/12/25 08:05 BP 112/51 02/12/25 06:00 Pulse Ox 99 02/12/25 08:05 O2 Del Method Mechanical Ventilation 02/12/25 06:00 FiO2 30 02/12/25 08:05 02/11/25 02/12/25 02/12/25 22:59 06:59 14:59 Intake Total 1644.916 / 2794.525 1107.138 / 3901.663 3.500 / 3.500 Output Total 900 / 1200 350 / 1550 Balance 744.916 / 1594.525 757.138 / 2351.663 3.500 / 3.500 Weight last 48 hrs Weight 158 lb 11.725 oz Weight 153 lb 3.54 oz Weight 153 lb 3.54 oz Weight 154 lb Physical Exam 2 Narrative: Chest: On vent Heart: Regular rate and rhythm. Abdomen: Soft, ABThera with serous output Urinary Catheter Management: Cope Latex: Cath Placed During This Visit: yes Reason for Continuing Indwelling Catheter: Accurate Measurement of Urinary Output in Critically Ill Patients Urinary Catheter Date of Insertion: 02/11/25 Urinary Catheter Time of Insertion: 01:22 Data 02/12/25 03:15 02/12/25 03:15 Micro: Microbiology 02/11/25 06:33 Blood Culture - Preliminary Blood NEGATIVE TO DATE 02/11/25 06:26 Blood Culture - Preliminary Blood NEGATIVE TO DATE 02/11/25 04:06 Blood Culture - Preliminary Blood NEGATIVE TO DATE 02/11/25 04:07 Blood Culture - Preliminary Blood NEGATIVE TO DATE 02/11/25 15:28 Blood Culture - Preliminary Blood SPECIMEN COLLECTED 02/11/25 15:28 Blood Culture - Preliminary Blood SPECIMEN COLLECTED 02/11/25 13:30 Gram Stain - Final Sputum - Endotracheal Wash 02/11/25 01:35 Gram Stain - Final Abdomen A&P Assessment and plan 1. Diverticulitis of both large and small intestine with abscess: 2. Abdominal abscess: 3. Internal hernia: Plan: 64-year-old female who presented with an internal hernia secondary to a large intra-abdominal abscess secondary to sigmoid diverticulitis. Will plan for reexploration today. Had an extensive discussion with the family and the spouse. Discussed risk and benefits and patient's and siblings have agreed to proceed with opening of recent exploratory laparotomy, possible bowel resection, possible ostomy, possible closure, possible flex sigmoidoscopy, possible EGD. They understand that if we identify a perforation in the sigmoid colon she will need a Vale's procedure. They understand there is a risk of anastomotic leak and we perform a small bowel resection. PDMP PDMP Reviewed: Not Reviewed Attestations 2 Medical Necessity Statement*: Mechanical ventilation, reexploration of the abdomen today Coding Level of Care Code 47266 Diagnoses Diverticulitis of both large and small intestine with abscess K57.40 Abdominal abscess Internal hernia K45.8
--- NOTE | 2025-02-12 13:27 | P.PN_ITS ---
Subjective 2 Subjective: Off pressors today and doing well No leukocytosis however intermittent febrile episodes over 24 hours and surgery onboard for it ABThera: Serous output Family at bedside Vitals/I&O/Wt Last Vital Signs Temp 101.4 F H 02/12/25 12:45 Pulse 79 02/12/25 12:45 Resp 12 02/12/25 12:45 BP 106/48 02/12/25 12:45 Pulse Ox 100 02/12/25 12:45 O2 Del Method Mechanical Ventilation 02/12/25 12:45 FiO2 30 02/12/25 12:45 02/11/25 02/12/25 02/12/25 22:59 06:59 14:59 Intake Total 1644.916 / 2794.525 1107.138 / 3901.663 27.836 / 27.836 Output Total 900 / 1200 350 / 1550 300 / 300 Balance 744.916 / 1594.525 757.138 / 2351.663 -272.164 / -272.164 Weight last 48 hrs Weight 72 kg Weight 69.5 kg Weight 69.5 kg Weight 69.853 kg Physical Exam 2 Narrative: General: Patient seen sedated and on mechanical ventilation HEENT: Normocephalic, atraumatic, breathing through mechanical ventilation at minimal settings and good tidal volumes Cardio: Regular rate rhythm, normal S1-S2, no murmurs rubs gallops, JVD normal Respiratory: Good bilateral air entry through mechanical ventilation, no wheezes no rhonchi appreciated GI: Abdomen soft, with ABThera in place draining serosanguineous, no distention found and normal bowel sounds Neuro: Unable to assess as the patient is on sedation Behavior: Patient on sedation Extremities: Pulses 2+, no edema, no cyanosis, mild pallor positive Skin: Grossly unremarkable exam Urinary Catheter Management: Cope Latex: Cath Placed During This Visit: yes Reason for Continuing Indwelling Catheter: Accurate Measurement of Urinary Output in Critically Ill Patients Urinary Catheter Date of Insertion: 02/11/25 Urinary Catheter Time of Insertion: 01:22 Data 02/12/25 03:15 02/12/25 03:15 Micro: Microbiology 02/11/25 13:30 Gram Stain - Final Sputum - Endotracheal Wash Sputum Culture - Preliminary 02/11/25 01:35 Gram Stain - Final Abdomen Anaerobic Culture - Preliminary 02/11/25 06:33 Blood Culture - Preliminary Blood NEGATIVE TO DATE 02/11/25 06:26 Blood Culture - Preliminary Blood NEGATIVE TO DATE 02/11/25 04:06 Blood Culture - Preliminary Blood NEGATIVE TO DATE 02/11/25 04:07 Blood Culture - Preliminary Blood NEGATIVE TO DATE 02/11/25 15:28 Blood Culture - Preliminary Blood SPECIMEN COLLECTED 02/11/25 15:28 Blood Culture - Preliminary Blood SPECIMEN COLLECTED A&P Assessment and plan 1. Abdominal abscess: 2. Diverticulitis of both large and small intestine with abscess: 3. Lower abdominal pain: 4. Hypotension after procedure: Plan: Diverticulitis with colonic abscess and ischemia - Status post surgery by surgical team the primary team Dr. Callahan - Hospitalist management for medical management continues - Patient sedated with Versed fentanyl and propofol, to taper down sedation slowly with evaluation of patient neurological status and agitation accordingly - Blood culture ordered, preliminary negative - Continue vancomycin and meropenem, and then tailor according to cultures and patient's clinical status - N.p.o. and NGT to suction - Continue adequate analgesia - keep MAP above 65mmhg Hypotension/off Levophed -maintain MAP target above 65 - Patient kept normotensive to perfuse surgical organ and to maintain good renal function Daily spontaneous awakening and breathing trial to wean off from the vent slowly Patient when ready to extubate, then subsequently OT PT eval, early mobilization and incentive spirometry to introduce Nutrition to introduce once cleared by the surgery PDMP PDMP Reviewed: Not Reviewed Attestations 2 Medical Necessity Statement*: Patient will stay in the hospital as per primary team discretion further management of intra-abdominal abscess Time Spent in Patient Care: 16 - 35 minutes (>than 50% of time sp ent in counselling and/or direct pt care on unit) . Critical Care Time: The high probability of a clinically significant, sudden or life threatening deterioration, as referenced in this documentation, required my full and direct attention, intervention and personal management. The critical care time shown is in addition to time spent performing any reported separately billable procedures and includes the following: [x] Data and vital sign review and interpretation [x ] Patient assessment, examination and intervention [x] Medication orders and management [x] Patient/Family updates as able [x] Care Coordination and Documentation. Coding Level of Care Code Critical Care >/= 30 minutes Diagnoses Abdominal abscess Diverticulitis of both large and small intestine with abscess K57.40 Lower abdominal pain R10.30 Hypotension after procedure I95.81
--- NOTE | 2025-02-12 13:38 | P.ANESUD_ITS ---
Pre-Anesthetic Update Pre-Anesthetic Assessment: Date of Surgery/Procedure: 02/12/25 Preop Rhea gnosis: internal hernia Proposed Procedure: Operation Date: 02/11/25 01:00 Proposed Procedures p Exploratory Laparotomy(Not Applicable) - Chico Callahan MD Operation Date: 02/12/25 14:25 Proposed Procedures p Exploratory Laparotomy(Not Applicable) - Chico Callahan MD s Laparoscopic Small Bowel Resection-Ostomy, closure, and flex sig(Not Applicable) - Chico Callahan MD s EGD(Not Applicable) - Chico Callahan MD s Sigmoidoscopy(Not Applicable) - Chico Callahan MD Changes from Pre-Anesthetic Assessment: Patient is currently on VC AC and ICU. Patient has been receiving fentanyl and Versed gtt. Vitals have been stable but patient has been febrile all day long. Patient's spouse and brother and [id number] are currently in ICU room. Discussed with them risk of anesthesia and plan to remain intubated and come back to ICU with slow wean once patient's abdomen is closed. ASA 4 Last Intake: Intake Last Liquid Date 02/10/25 Last Liquid Time 19:00 Last Solid Date 02/10/25 Last Solid Time 19:00 Labs Last 48hrs: Short CBC 02/10/25 02/11/25 02/12/25 Range/Units 21:03 04:07 03:15 WBC 9.92 5.38 8.00 (3.29-11.43) 10^ 3/uL Hgb 12.90 9.90 L 10.50 L (11.27-16.99) g/ dL Hct 35.9 L 30.1 L 32.5 L (36-47) % MCV 84.7 L 91.2 D 93.9 (85-98) fl Plt Count 220 209 216 (157-399) 10^3/c mm Neut % (Auto) 84.4 76.1 % Neut # (Auto) 8.38 H 6.09 (1.8-7.7) 10^3/u L BMP 02/10/25 02/11/25 02/12/25 21:03 04:07 03:15 Sodium 130 L 135 L 138 Potassium 3.6 3.4 L 4.1 Chloride 93 L 101 108 H Carbon Dioxide 20 L 23 21 L BUN 8 8 7 L Creatinine 0.5 0.5 0.4 L Glucose 145 H 129 H 98 Calcium 9.5 8.1 L 8.2 L Liver Function 02/10/25 02/11/25 02/12/25 Range/Units 21:03 04:07 03:15 Total Bilirubin 1.5 H 0.9 0.4 (0.15-1.2) mg/dL AST 76 H 44 H 24 (0-32) U/L ALT 85 H 60 H 40 H (0-33) U/L Alkaline Phosphata se 87 70 107 H (35-105) U/L Albumin 3.7 3.2 L 2.9 L (3.5-5.2) g/dL Urine 02/10/25 Range/Units 22:20 Urine Color [place] A (Yellow) Urine Appearance Clear (CLEAR) Urine pH 5.5 (5-7) Ur Specific Gravit y 1.072 H (1.005-1.030) Urine Protein Trace A (Negative) Urine Glucose (UA) Negative (Normal) Urine Ketones 2+ H (Negative) Urine Nitrate Positive A (Negative) Urine Bilirubin 1+ H (Negative) Ur Leukocyte Aimee ase 1+ A (Negative) Urine RBC 0-2 (0-2) /hpf Urine WBC 0-5 (0-5) /hpf Coags 02/10/25 02/11/25 21:03 04:07 ESR 26 H C-Reactive Protein 197.1 H C-React Prot High Sens 26.710 H ABG 02/11/25 03:15 Specimen Type Arterial Sample Site Brachial, right ABG pH 7.46 H ABG pCO2 34.6 L ABG pO2 131.0 H ABG PO2/FiO2 Ratio 327 ABG HCO3 24.3 ABG O2 Saturation > 99.1 ABG Base Excess 0.6 A-a O2 Gradient 14.3 H O2 Delivery Device Vent FiO2 40.0 Tidal Volume 0.40 PEEP 5.0 Vitals: Temperature 101.4 F H 02/12/25 12:45 Temperature Source Axillary 02/12/25 12:45 Pulse Rate 79 02/12/25 12:45 Pulse Rhythm Regular 02/12/25 12:00 Pulse Strength 3+ Normal 02/12/25 12:00 Respiratory Rate 12 02/12/25 12:45 Respiratory Effort Mechanically Vent ilated 02/12/25 12:00 Respiratory Depth Normal 02/12/25 12:00 Blood Pressure 106/48 02/12/25 12:45 Blood Pressure Ivett n 67 02/12/25 12:45 Blood Pressure Pos ition Semi Fowlers 02/12/25 12:45 Pulse Oximetry 100 02/12/25 12:45 Oxygen Delivery Me thod Mechanical Ventil ation 02/12/25 12:45 Fraction of Inspir ed Oxygen 30 02/12/25 12:45
--- NOTE | 2025-02-12 15:08 | PM.OP ---
Operative Report Date of procedure: February 12, 2025 Pre-op diagnosis: Sigmoid diverticulitis with pericolonic abscess Post-op diagnosis: other Post-op diagnosis: Perforated sigmoid diverticulitis with pericolonic abscess Post-op findings: Residual pelvic abscess. Closer inspection of the colon revealed perforated sigmoid diverticulitis. Performed a Vale's procedure. When constructing the end colostomy in the left lower quadrant ensured that the mesentery remained straight, and ensured there were no internal hernias. 19 [place] Jim drain left in the pelvis. Marked the rectal pouch with a long 3-0 Prolene. Ran the small bowel 5 times from cecum to ligament of Treitz, and the entirety of the small bowel was intact and viable. Stomach was also found to be intact. The cecum, ascending colon, transverse colon and proximal aspect of of the descending colon were viable and healthy. Washed the abdomen with 4 L of warm normal saline. Closed the abdomen. Procedure done: Opening of recent exploratory laparotomy, abdominal washout, Vale's procedure (sigmoidectomy with end colostomy) Implants: N/A Specimens removed/disposition: Perforated sigmoid colon sent to pathology Pathology: Perforated sigmoid colon sent to pathology Surgeon: Chico Callahan MD Medicare Sales Representative: Onel Sullivan Anesthesia: General Estimated blood loss (mL): 50 Complications: N/A Findings: Residual pelvic abscess. Closer inspection of the colon revealed perforated sigmoid diverticulitis. Performed a Avle's procedure. When constructing the end colostomy in the left lower quadrant ensured that the mesentery remained straight, and ensured there were no internal hernias. 19 [place] Jim drain left in the pelvis. Marked the rectal pouch with a long 3-0 Prolene. Ran the small bowel 5 times from cecum to ligament of Treitz, and the entirety of the small bowel was intact and viable. Stomach was also found to be intact. The cecum, ascending colon, transverse colon and proximal aspect of of the descending colon were viable and healthy. Washed the abdomen with 4 L of warm normal saline. Closed the abdomen. Condition: stable Disposition: ICU Brief History: 64-year-old female who initially presented with an internal hernia secondary to a pelvic abscess from sigmoid diverticulitis. On the first case internal hernia was reduced. Small bowel was found to be viable. Sigmoid colon looked questionable and therefore decided to close temporarily with ABThera for reexploration. Discussed risk and benefits and spouse agreed to proceed with opening of recent exploratory laparotomy, possible bowel resection, possible ostomy, possible closure possible flexible sigmoidoscopy, possible esophagogastroduodenoscopy. Procedure: Consent obtained in the ICU. Patient transported from ICU to the OR. Scheduled antibiotics administered. SCDs on and working. I asked Dr. Sullivan to assist with this procedure since there was no qualified staff to assist. The abdomen was prepped and draped in the usual sterile fashion. The ABThera was removed. The abdomen was washed out with 2 L of warm normal saline. The small bowel was ran 5 times from cecum to ligament of Treitz. The entirety of the small bowel was intact and viable. Stomach was then examined and it was intact and viable. We then centered our attention to the pelvis. There was a residual pelvic abscess next to the sigmoid colon. On closer inspection of the sigmoid colon we identified a perforation at the mid sigmoid colon. Given this finding we then proceeded to perform a Vale's procedure. We started by mobilizing the left colon from lateral to medial. We identified the ureter. We ensured to protect the ureter during the rest of the surgery. We then picked a proximal and distal transection point of the sigmoid colon ensuring to take out the entirety of the diseased sigmoid colon. We made a small window in the mesentery using electrocautery. We transected the colon using a LEAH stapler with a blue load. The mesentery was then transected using a LigaSure impact right next to the colonic wall. The specimen was then passed off and sent to pathology. The rectal pouch was then marked with a long 3-0 Prolene. We then proceeded to create the ostomy in the left lower quadrant. Electrocautery was used to resect a 3 cm lummi of skin. Electrocautery was then used to dissect down to the fascial layer. Fascia was transected using electrocautery. The rectus muscle was then spread using a [place]. The posterior fascia was then pierced bluntly under direct visualization. I ensured that the ostomy would fit at least 2 fingers easily. We then brought up our end colostomy through the abdominal wall. We ensured that the mesentery was straight. We also ensured that the colon will reach the skin without any tension. Once this was done, I washed out the abdomen again with 2 L of warm normal saline. I checked once more to ensure that the mesentery of the colostomy remained straight. I made sure that there were no internal hernias prior to closure. I left a 19 [place] Jim drain in the pelvis which was secured with 3-0 nylon. I then proceeded to close the midline using #1 looped PDS. Wound was washed out with normal saline. Skin was closed using [place]. With I then proceeded to mature the ostomy. I transected the staple line using electrocautery. I then created a small eversion of the end colostomy. I used multiple interrupted 3-0 Vicryl to mature the ostomy. At the end of the case the ostomy was pink and warm. I placed an ostomy bag. A sterile dressing was applied over the midline. The patient was then transferred to the ICU without any complications. Patient remained intubated.
--- NOTE | 2025-02-12 15:08 | W.PM.BPON ---
Date of Procedure: 02/12/2025 Surgeon: Dr. Callahan General Warehouse Worker(s): Dr. Sullivan Procedure(s) performed: Opening of recent exploratory laparotomy, abdominal washout, Vale's procedure (sigmoidectomy with end colostomy) Findings of the procedure(s): Residual pelvic abscess. Closer inspection of the colon revealed perforated sigmoid diverticulitis. Performed a Vale's procedure. When constructing the end colostomy in the left lower quadrant ensured that the mesentery remained straight, and ensured there were no internal hernias. 19 [place] Jim drain left in the pelvis. Marked the rectal pouch with a long 3-0 Prolene. Ran the small bowel 5 times from cecum to ligament of Treitz, and the entirety of the small bowel was intact and viable. Stomach was also found to be intact. The cecum, ascending colon, transverse colon and proximal aspect of of the descending colon were viable and healthy. Washed the abdomen with 4 L of warm normal saline. Closed the abdomen. Estimated blood loss: 50 cc Specimen(s) removed: Perforated sigmoid colon sent to pathology Post-operative diagnosis: Sigmoid perforated diverticulitis, pelvic abscess.
--- NOTE | 2025-02-12 15:52 | PC.NURSE ---
Received patient from OR staff at 1509. Patient is intubated and sedated. HR: 63 BP: 94/43 SPO2: 99% Temp:98.6 RR: 12 Has a colostomy bag in place, fistula is pink in color, small amount of stool present in center of fistula. Unremarkable LAMONT drain to right abdomen, scant amount of serous drainage present.
--- NOTE | 2025-02-12 18:36 | PC.NURSE ---
Shift SUmmary: Went to surgery. Received a Colostomy. At the time of this note, the fistula is pink, unremarkable, small amount of serous drainage into colostomy bag. Sedation requirements have decreased since coming back from [facility]. Currently on 100mcg of fentanyl and 1mg of versed. Will occausnally sluggishly open eyes. Levophed requrements comparable to yesterday, variable between 0-6. Outputs: Urine: 500 N Right abdominal LAMONT drain: 20ml Serous.
[2025-02-13] VITALS (100 sets, daily range): BP systolic 111–180; BP diastolic 53–83; PULSE 70–103; RESP 3–23; TEMP 36.8–37.7; O2SAT 93–100
[2025-02-13] MEDS: meropenem 1,000 mg SDV 1000 MG IVP ×3 (00:37→17:05)
[2025-02-13 04:14] LABS: Hematocrit 31.7 % (36-47); Hemoglobin 10.00 g/dL (11.27-16.99); Mean Corpuscular HGB Conc 31.5 g/dL (30-55); Mean Corpuscular Hemoglobin 29.4 pg (27-33); Mean Corpuscular Volume 93.2 fl (85-98); Nucleated Red Blood Cells % 0 %; Platelet Count 248 10^3/cmm (157-399); Red Blood Count 3.40 10^6/uL (3.85-5.65); White Blood Count 8.10 10^3/uL (3.29-11.43)
[2025-02-13 04:41] LABS: Slide Review Slide Review Perform
[2025-02-13 04:42] LABS: Alanine Aminotransferase 24 U/L (0-33); Albumin Level 2.4 g/dL (3.5-5.2); Alkaline Phosphatase 121 U/L (35-105); Anion Gap 13.7 (5-19); Aspartate Amino Transferase 16 U/L (0-32); Blood Urea Nitrogen 7 mg/dL (8-23); Calcium 7.7 mg/dL (8.5-10.5); Carbon Dioxide 20 mmol/L (22-29); Chloride 111 mmol/L (98-107); Creatinine Clr Calc Pharmacy 135.1217; Globulin 2.9 g/dL (1.3-4.6); Glucose 109 mg/dL (65-115); Osmolality Calculated 291 mOsm/kg (285-295); Potassium 3.7 mmol/L (3.5-5.1); Sodium 141 mmol/L (136-145); Total Protein 5.3 g/dL (6.6-8.7)
[2025-02-13] MEDS: pantoprazole 40 mg SDV IVP ×2 (05:00→18:14)
--- NOTE | 2025-02-13 10:35 | PM.PN ---
Subjective Subjective: Hemodynamically stable Abdomen soft dressing in place. Drain is serosanguineous Ostomy is functional. Viable. Vitals/I&O/Wt Last Vital Signs Temp 98.4 F 02/13/25 04:00 Pulse 71 02/13/25 06:15 Resp 12 02/13/25 09:30 BP 120/55 02/13/25 06:15 Pulse Ox 97 02/13/25 09:30 O2 Del Method Mechanical Ventilation 02/13/25 04:00 FiO2 30 02/13/25 09:30 02/12/25 02/13/25 02/13/25 22:59 06:59 14:59 Intake Total 124.317 / 1416.853 47.563 / 9624.498 3587.667 / 1156.667 Output Total 200 / 500 640 / 1140 Balance -75.683 / 916.853 -592.437 / 377.718 3240.667 / 1156.667 Weight last 48 hrs Weight 167 lb 8.821 oz Weight 158 lb 11.725 oz Physical Exam Narrative: Chest: Intubated sedated. On mechanical ventilation Heart: Regular rate and rhythm. Abdomen: Soft, nondistended. Drain serosanguineous. Ostomy putting out gas and stool. Ostomy is viable Urinary Catheter Management: Cope Latex: Cath Placed During This Visit: yes Reason for Continuing Indwelling Catheter: Accurate Measurement of Urinary Output in Critically Ill Patients Urinary Catheter Date of Insertion: 02/11/25 Urinary Catheter Time of Insertion: 01:22 Data 02/13/25 03:52 02/13/25 03:52 Micro: Microbiology 02/11/25 15:28 Blood Culture - Preliminary Blood NEGATIVE TO DATE 02/11/25 15:28 Blood Culture - Preliminary Blood NEGATIVE TO DATE 02/11/25 01:35 Gram Stain - Final Abdomen Anaerobic Culture - Preliminary Wound Culture - Preliminary Gram Negative Rods 02/11/25 13:30 Gram Stain - Final Sputum - Endotracheal Wash Sputum Culture - Preliminary 02/11/25 06:33 Blood Culture - Preliminary Blood NEGATIVE TO DATE 02/11/25 06:26 Blood Culture - Preliminary Blood NEGATIVE TO DATE A&P Assessment and plan 1. Diverticulitis of both large and small intestine with abscess: 2. Abdominal abscess: 3. Internal hernia: Plan: 64-year-old female status post Vale's procedure for perforated diverticulitis. From a surgical perspective doing well. Ostomy is functioning and viable. Okay to extubate. Rest of care per hospitalist. Once extubated patient can be transferred to [facility]. PDMP PDMP Reviewed: Not Reviewed Attestations Medical Necessity Statement*: IV fluids, IV antibiotics, IV pain meds, chemical ventilation Coding Level of Care Code 42798 Diagnoses Diverticulitis of both large and small intestine with abscess K57.40 Abdominal abscess Internal hernia K45.8
--- NOTE | 2025-02-13 14:09 | P.PN_ITS ---
Subjective 2 Subjective: Sedated this morning, opening her eyes. Later on waking up with weaning of sedation, did well with breathing trial. Vitals/I&O/Wt Last Vital Signs Temp 98.4 F 02/13/25 04:00 Pulse 71 02/13/25 06:15 Resp 13 02/13/25 13:30 BP 120/55 02/13/25 06:15 Pulse Ox 98 02/13/25 13:30 O2 Del Method Mechanical Ventilation 02/13/25 04:00 FiO2 30 02/13/25 13:30 02/12/25 02/13/25 02/13/25 22:59 06:59 14:59 Intake Total 124.317 / 1416.853 47.563 / 0679.525 0468.042 / 1166.042 Output Total 200 / 500 640 / 1140 Balance -75.683 / 916.853 -592.437 / 149.553 9355.042 / 1166.042 Weight last 48 hrs Weight 76 kg Weight 72 kg Physical Exam 2 Narrative: On revisit she is awake although groggy. Does follow directions, squeezes both hands. Falls asleep easily. Const: GENERAL APPEARANCE: patient mechanically ventilated OTHER: Sedated, mechanically ventilated this morning. Gradually waking up. HENMT: COMMON NORMALS: oropharynx normal Neck/C-Spine: COMMON NORMALS: no JVD Resp: COMMON NORMALS: normal respiratory effort and clear to auscultation bilaterally AUSCULTATION: clear to auscultation bilaterally Cardio: COMMON NORMALS: no JVD, regular rhythm, S1 normal heart sound present, S2 normal heart sound present and No murmurs present (Cardio) RHYTHM: regular rhythm HEART SOUNDS: S1 normal heart sound present and S2 normal heart sound present GI: COMMON NORMALS: Soft to palpation AUSCULTATION: Yes Hypoactive bowel sounds present PALPATION: Yes Soft to palpation OTHER: Stop dressing, LAMONT drain. Colostomy. Extremity: COMMON NORMALS: no joint enlargement and no pedal edema Neuro: COMMON NORMALS: moves all extremities Skin: COMMON NORMALS: no rashes or lesions noted GENERAL SKIN EXAM: no rashes or lesions noted Urinary Catheter Management: Cope Latex: Cath Placed During This Visit: yes Reason for Continuing Indwelling Catheter: Accurate Measurement of Urinary Output in Critically Ill Patients Urinary Catheter Date of Insertion: 02/11/25 Urinary Catheter Time of Insertion: 01:22 Data 02/13/25 03:52 02/13/25 03:52 Micro: Microbiology 02/11/25 13:30 Gram Stain - Final Sputum - Endotracheal Wash Sputum Culture - Final 02/11/25 15:28 Blood Culture - Preliminary Blood NEGATIVE TO DATE 02/11/25 15:28 Blood Culture - Preliminary Blood NEGATIVE TO DATE 02/11/25 01:35 Gram Stain - Final Abdomen Anaerobic Culture - Preliminary Wound Culture - Preliminary Gram Negative Rods A&P Assessment and plan 1. Abdominal abscess: 2. Diverticulitis of both large and small intestine with abscess: 3. Lower abdominal pain: 4. Hypotension after procedure: Plan: Diverticulitis with colonic abscess and ischemia Status post surgical second look on 02/12. Discussed with surgery, they are happy with her progress so far. Wean sedation, breathing trial, discussed with surgery, discussed with nursing, RT, with successful breathing trial extubated to 2 L nasal cannula. Somewhat groggy. Per discussion with her partner she is very slow to wake up usually in the morning as well, however discussed may be slow to recover from sedation. Continue monitoring in ICU tonight. N.p.o. for now. Avoid sedating medications. Monitor and support oxygenation. With some worsening lethargy in the evening, check ABG. Will hold IV fluids for now. Avoid hyperoxia in case of any hypercapnia, target O2 88-92%. Will request to be reassessed by overnight provider. Per discussion with her life partner, without alcohol consumption, recreational substance use, no recent medication changes, does not appear to be any psychoactive medications at home. Depending on ABG, condition consider CT head. Small amount of output produced from colostomy. Continue to reassess resumption of bowel function. - Blood culture ordered, preliminary negative - Continue vancomycin and meropenem, and then tailor according to cultures and patient's clinical status - N.p.o. - Continue adequate analgesia - keep MAP above 65mmhg Hypotension/off Levophed -maintain MAP target above 65 - Patient kept normotensive to perfuse surgical organ and to maintain good renal function Nutrition to introduce once cleared by the surgery PDMP PDMP Reviewed: Not Reviewed Attestations 2 Medical Necessity Statement*: Continue admission for assessment and management following complicated diverticulitis with abscess, worsening lethargy after extubation. Coding Level of Care Code Critical Care >/= 30 minutes Critical care time (in minutes): 40 The high probability of a clinically significant, sudden or life threatening deterioration, as referenced in this documentation, required my full and direct attention, intervention and personal management. The critical care time shown is in addition to time spent performing any reported separately billable procedures and includes the following: [x] Data and vital sign review and interpretation [x ] Patient assessment, examination and intervention [x] Medication orders and management [x] Patient/Family updates as able [x] Care Coordination and Documentation. Diagnoses Abdominal abscess Diverticulitis of both large and small intestine with abscess K57.40 Lower abdominal pain R10.30 Hypotension after procedure I95.81
--- NOTE | 2025-02-13 14:29 | PC.NURSE ---
1350 Extubated per RT, placed on NC weaned down to 2L NC per RT to maintain O2 saturations. Patient following all commands but remains slow to respond and has a glazed over look. at bedside and states that when she wakes up in the mornings she is pretty out of it for a while. Bilat pupils 3 and reactive. Notified . No new orders at present time.
--- NOTE | 2025-02-13 15:05 | PC.NURSE ---
Dr. Rowe to bedside to assess neurological status. Slight improvement noted, slightly more responsive. Will continue to monitor.
--- NOTE | 2025-02-13 18:49 | PC.NURSE ---
Patient less responsive and not following commands at all at present time. Orders given to get an ABG.
[2025-02-13 19:28] LABS: ABG PCO2 41.1 mmHg (35-45); ABG PH Result 7.36 (7.35-7.45); Alveolar-Arterial Oxygen Gradi 0.0 mmHg (5-10); Arterial Blood Gas Hematocrit 33.9 % (37-47); Blood Gas Allen Test Pos; Blood Gas LPM 2.0 %; Blood Gas Sample Site Radial, right; Blood Gas Sample Type Arterial; Carboxyhemoglobin 1.0 %THgb (0.4-20.1); Glucose Level-ABG 118.0 mg/dL (70-115); HCO3 ABG 23.1 mmol/L (22-26); Ionized Calcium Level - ABG 1.2 mmol/L (1.1-1.4); Methemoglobin 1.1 % (0.4-1.5); Oxygen Saturation ABG 98.9; PO2 ABG 106.0 mmHg (80.0-100.0); Potassium Level - ABG 3.6 mmol/L (3.5-5.0); Sodium Level - ABG 146.0 mmol/L (131-143)
--- NOTE | 2025-02-13 19:45 | CTR_ITS ---
PROCEDURE INFORMATION: Exam: CT Head Without Contrast Exam date and time: 02/13/2025 8:20 PM Age: 64 years old Clinical indication: Other: Neuro deficits; Additional info: Neurological defecits TECHNIQUE: Imaging protocol: Computed tomography of the head without contrast. Radiation optimization: All CT scans at this facility use at least one of these dose optimization techniques: automated exposure control; mA and/or kV adjustment per patient size (includes targeted exams where dose is matched to clinical indication); or iterative reconstruction. COMPARISON: No relevant prior studies available. RADIATION DOSE METRICS: Total DLP (mGy-cm): 1206.08 FINDINGS: Brain: Lacunar focus in the right basal ganglia; nonspecific although commonly chronic. Cerebral ventricles: No ventriculomegaly. Paranasal sinuses: mild left maxillary sinus mucosal disease. Mastoid air cells: Visualized mastoid air cells are well aerated. Bones: Unremarkable. No acute fracture. Soft tissues: Unremarkable. CT/CT head wo con* [id number] IMPRESSION: No definite acute intracranial process.
[2025-02-13] MEDS: FUROsemide 10 mg/mL SDV 2mL 20 MG IVP (19:48)
--- NOTE | 2025-02-13 20:00 | PC.NURSE ---
Head CT Dr. Santos at bedside. Order received to obtain head CT.
[2025-02-14] VITALS (53 sets, daily range): BP systolic 140–202; BP diastolic 67–102; PULSE 81–105; RESP 0–24; TEMP 36.5–37.1; O2SAT 86–97
[2025-02-14] MEDS: meropenem 1,000 mg SDV 1000 MG IVP ×3 (00:11→16:33)
[2025-02-14 04:13] LABS: Hematocrit 31.7 % (36-47); Hemoglobin 10.20 g/dL (11.27-16.99); Mean Corpuscular HGB Conc 32.2 g/dL (30-55); Mean Corpuscular Hemoglobin 29.6 pg (27-33); Mean Corpuscular Volume 91.9 fl (85-98); Nucleated Red Blood Cells % 0 %; Platelet Count 279 10^3/cmm (157-399); Red Blood Count 3.45 10^6/uL (3.85-5.65); White Blood Count 11.08 10^3/uL (3.29-11.43)
--- NOTE | 2025-02-14 04:26 | PC.NURSE ---
Waste Approximately, 72 ml of fentanyl and 18 ml of versed wasted with LA Bates.
[2025-02-14 04:36] LABS: Alanine Aminotransferase 19 U/L (0-33); Albumin Level 2.5 g/dL (3.5-5.2); Alkaline Phosphatase 85 U/L (35-105); Anion Gap 15.2 (5-19); Aspartate Amino Transferase 13 U/L (0-32); Blood Urea Nitrogen 9 mg/dL (8-23); Calcium 8.2 mg/dL (8.5-10.5); Carbon Dioxide 24 mmol/L (22-29); Chloride 110 mmol/L (98-107); Creatinine Clr Calc Pharmacy 138.7106; Globulin 3.2 g/dL (1.3-4.6); Glucose 135 mg/dL (65-115); Osmolality Calculated 303 mOsm/kg (285-295); Potassium 3.2 mmol/L (3.5-5.1); Sodium 146 mmol/L (136-145); Total Protein 5.7 g/dL (6.6-8.7)
--- NOTE | 2025-02-14 05:00 | PC.NURSE ---
Dilaudid Patient's blood pressure 202/94 while patient groaning in pain. When asked where the pain was, patient indicated her head. Dr. Santos contacted and order received for 0.5 mg dilaudid IVP once as well as PT/OT consults.
[2025-02-14] MEDS: pantoprazole 40 mg SDV IVP ×2 (05:34→19:43)
[2025-02-14] MEDS: HYDROmorphone 0.5 MG/0.5 ML INJ IVP (05:34)
--- NOTE | 2025-02-14 06:30 | PC.NURSE ---
NG tube/Central Line Upon entering patient's room, NG tube noted to be laying on patient. When asking patient what happened, patient did not respond. Dr. Sullivan notified; order received to leave NG tube out and not replace. Approximately 20 minutes later, central line also noted to be laying on patient. Dr. Santos notified and sitter requested. Order received for 1:1 sitter as well as to notify surgeon. Sitter arrived. Day team to alert surgeon of removal of central line.
--- NOTE | 2025-02-14 09:12 | P.PN_ITS ---
Subjective 2 Subjective: Ostomy functional and viable NG tube pulled out accidentally. Had minimal output. Abdomen benign. Drain is serous. Incision clean dry intact Hypoactive delirium. Negative CT scan. Vitals/I&O/Wt Last Vital Signs Temp 97.8 F 02/14/25 08:00 Pulse 105 H 02/14/25 08:00 Resp 10 L 02/14/25 08:00 BP 178/79 02/14/25 08:00 Pulse Ox 94 02/14/25 08:00 O2 Del Method Room Air 02/14/25 08:00 O2 Flow Rate 2 02/13/25 19:45 FiO2 2 02/13/25 14:00 02/13/25 02/14/25 02/14/25 22:59 06:59 14:59 Intake Total 986.667 / 2152.709 0 / 2152.709 Output Total 1600 / 1600 550 / 2150 Balance -613.333 / 552.709 -550 / 2.709 Weight last 48 hrs Weight 158 lb 11.725 oz Weight 167 lb 8.821 oz Physical Exam 2 Narrative: Chest: Unlabored breathing room air. No lymphadenopathy. Heart: Regular rate and rhythm. Abdomen: Soft, nontender, nondistended. Ostomy viable and functional. Incision clean dry intact Urinary Catheter Management: Cope Latex: Cath Placed During This Visit: yes Reason for Continuing Indwelling Catheter: Accurate Measurement of Urinary Output in Critically Ill Patients Urinary Catheter Date of Insertion: 02/11/25 Urinary Catheter Time of Insertion: 01:22 Data 02/14/25 03:46 02/14/25 03:46 Micro: Microbiology 02/11/25 01:35 Gram Stain - Final Abdomen Anaerobic Culture - Preliminary Wound Culture - Final Escherichia coli 02/11/25 13:30 Gram Stain - Final Sputum - Endotracheal Wash Sputum Culture - Final A&P Assessment and plan 1. Diverticulitis of both large and small intestine with abscess: 2. Internal hernia: 3. Abdominal abscess: Plan: 64-year-old female status post Vale's procedure. Ostomy is viable and functional. Now with hypoactive delirium. From a surgical perspective okay to transfer to [facility] which should help from an ICU delirium perspective. Once her mentation improves and once swallow was tested at bedside can advance to clear liquids. Hospitalist to address medical management. PDMP PDMP Reviewed: Not Reviewed Attestations 2 Medical Necessity Statement*: Perforated sigmoid diverticulitis, status post Vale's procedure, delirium Coding Level of Care Code 93104 Diagnoses Diverticulitis of both large and small intestine with abscess K57.40 Internal hernia K45.8 Abdominal abscess
--- NOTE | 2025-02-14 15:40 | P.OP_ITS ---
Operative Report Date of procedure: February 11, 2025 Pre-op diagnosis: Internal hernia Post-op diagnosis: other Post-op diagnosis: Internal hernia secondary to pelvic abscess secondary to sigmoid diverticulitis Post-op findings: Internal hernia with a 40cm segment of ischemic bowel secondary to a pericolonic abscess secondary to sigmoid diverticulitis. Sent cultures from the OR. Washed out the abdomen with 4 L of warm normal saline. Ran bowel 5 times from cecum to ligament of Treitz. Small bowel pinked up appropriately and appeared viable at end of case. Inspected cecum, ascending colon, transverse colon, descending colon, sigmoid colon, and rectum which all appeared viable. She does have a segment of sigmoid diverticulitis without william perforation. The stomach and duodenum were also viable. Confirmed NG tube positioning in the stomach intraoperatively. Decided to close temporarily with an ABThera to examine the small bowel in the sigmoid colon in 24 to 48 hours to ensure she does not need a small bowel resection or a Vale's procedure. Procedure done: Exploratory laparotomy, reduction of internal hernia, temporary closure with ABThera Implants: N/A Specimens removed/disposition: Culture sent from pelvic abscess Pathology: none sent Pathology: N/A Surgeon: Chico Callahan MD Vending Technician: N/A Anesthesia: General Estimated blood loss (mL): 20 Complications: N/A Findings: Internal hernia with a 40cm segment of ischemic bowel secondary to a pericolonic abscess secondary to sigmoid diverticulitis. Sent cultures from the OR. Washed out the abdomen with 4 L of warm normal saline. Ran bowel 5 times from cecum to ligament of Treitz. Small bowel pinked up appropriately and appeared viable at end of case. Inspected cecum, ascending colon, transverse colon, descending colon, sigmoid colon, and rectum which all appeared viable. She does have a segment of sigmoid diverticulitis without william perforation. The stomach and duodenum were also viable. Confirmed NG tube positioning in the stomach intraoperatively. Decided to close temporarily with an ABThera to examine the small bowel in the sigmoid colon in 24 to 48 hours to ensure she does not need a small bowel resection or a Vale's procedure. Condition: stable Disposition: ICU Brief History: 64-year-old female who presented with an internal hernia. Patient complained of pelvic pain. No history of surgeries or diverticulitis per patient. Discussed risk and benefits and patient agreed to proceed with exploratory laparotomy, possible resection, possible ostomy, possible ABThera. Procedure: Consent obtained in the preop area. SCDs on and working. Preoperative antibiotic administered. General anesthesia induced. The abdomen was prepped and draped in the usual sterile fashion. A midline incision was carried out. Peritoneum was entered using scissors. Upon entering the abdomen a large amount of purulent fluid was encountered. Cultures were sent. A large pelvic abscess was found in the pelvis which was causing an internal hernia. This internal hernia involved a 40 cm segment of ischemic bowel that quickly pinked up upon reduction of this internal hernia. The abdomen was washed out with 4 years of warm normal saline. The bowel was run 5 times from cecum to ligament of Treitz. I confirmed that the small bowel had pinked up appropriately in its entirety. Intact. The pelvis was then inspected and I found a pericolonic abscess next to a segment of sigmoid colon with diverticulitis. At the time I did not identify a wililam perforation. I inspected the cecum, ascending colon, transverse colon, descending colon as well as the rectum and they all appeared viable. The sigmoid colon wall disease also appeared viable. Stomach and duodenum looked healthy. I confirmed any tube positioning in the stomach intraoperatively. Given the unusual presentation of this pelvic abscess in the setting of possible perforated diverticulitis, I elected to close the abdomen temporarily and reexplored the abdomen to make sure that she does not need a small bowel resection or a Vale's procedure. I then proceeded to close with an ABThera. I confirmed that all counts were correct. The patient remained hemodynamically stable and was transferred to the ICU without any complications. The patient remained intubated.
--- NOTE | 2025-02-14 15:59 | PC.OT ---
OT orders received to evaluate and treat. Evaluation attempted, but pt. unable to follow fine motor commands. Evaluation to be attempted when pt. is able to follow all commands.
[2025-02-14] MEDS: potassium chloride premix 100 ML 50 MEQ IV (16:33)
--- NOTE | 2025-02-14 16:43 | PM.PN ---
Subjective Subjective: Ostomy functional and viable NG tube pulled out accidentally. Had minimal output. Patient postextubation, soft abdomen however the patient is having likely hypoactive delirium, CT scan negative Patient is alert oriented seems a little tired and drowsy but able to protect her airways Interactive and following the commands and cooperative. Vitals/I&O/Wt Last Vital Signs Temp 97.7 F 02/14/25 14:00 Pulse 84 02/14/25 16:00 Resp 9 L 02/14/25 16:00 BP 155/73 02/14/25 16:00 Pulse Ox 92 02/14/25 16:00 O2 Del Method Room Air 02/14/25 16:00 O2 Flow Rate 2 02/13/25 19:45 FiO2 2 02/13/25 14:00 02/14/25 02/14/25 02/14/25 06:59 14:59 22:59 Intake Total 0 / 2152.709 350 / 350 Output Total 550 / 2150 75 / 75 Balance -550 / 2.709 275 / 275 Weight last 48 hrs Weight 72 kg Weight 76 kg Physical Exam Narrative: General: Patient alert and oriented, cooperative, feels drowsy or tired possible hypoactive delirium Not in distress and at room air HEENT: Normocephalic, atraumatic, breathing comfortably on room air Cardio: Regular rate rhythm, normal S1-S2, no murmurs rubs gallops, JVD normal Respiratory: Good bilateral air entry through mechanical ventilation, no wheezes no rhonchi appreciated GI: Abdomen soft, nontender, no distention found and normal bowel sounds, incisions clean Neuro: Cooperative alert and oriented grossly unremarkable neuroexam Behavior: Cooperative and appropriate Extremities: Pulses 2+, no edema, no cyanosis, mild pallor positive Skin: Grossly unremarkable exam Urinary Catheter Management: Cope Latex: Cath Placed During This Visit: yes Reason for Continuing Indwelling Catheter: Accurate Measurement of Urinary Output in Critically Ill Patients Urinary Catheter Date of Insertion: 02/11/25 Urinary Catheter Time of Insertion: 01:22 Data 02/14/25 03:46 02/14/25 03:46 Micro: Microbiology 02/11/25 01:35 Gram Stain - Final Abdomen Anaerobic Culture - Preliminary Wound Culture - Final Escherichia coli 02/11/25 13:30 Gram Stain - Final Sputum - Endotracheal Wash Sputum Culture - Final A&P Assessment and plan 1. Abdominal abscess: 2. Diverticulitis of both large and small intestine with abscess: 3. Lower abdominal pain: 4. Hypotension after procedure: Plan: Diverticulitis with colonic abscess and ischemia Status post surgical second look on 02/12. Discussed with surgery, they are happy with her progress so far. S/p extubation doing well. Passed swallowing evaluation and to start on clear fluids as per surgery S/p extubation mild hypoactive delirium. However alert cooperative following commands Per discussion with her life partner, without alcohol consumption, recreational substance use, no recent medication changes, does not appear to be any psychoactive medications at home. Depending on ABG, condition consider CT head. Small amount of output produced from colostomy. Continue to reassess resumption of bowel function. - Blood culture ordered, preliminary negative - Continue vancomycin and meropenem, and then tailor according to cultures and patient's clinical status - Clear fluid diet. - Liquid analgesia post laparotomy -High blood pressure Likely secondary to distress, s/p extubation Start amlodipine 5 mg and monitor Disposition:Transfer to [facility] PDMP PDMP Reviewed: Not Reviewed Attestations Medical Necessity Statement*: Patient will need to stay further management s/p laparotomy due to abdominal abscesses Currently having due to bleeding possible post extubation and under the effect of sedatives. Continue to monitor and reorientation according Time Spent in Patient Care: 16 - 35 minutes (>than 50% of time spent in counselling and/or direct pt care on unit). Critical Care Time: The high probability of a clinically significant, sudden or life threatening deterioration, as referenced in this documentation, required my full and direct attention, intervention and personal management. The critical care time shown is in addition to time spent performing any reported separately billable procedures and includes the following: [x] Data and vital sign review and interpretation [x] Patient assessment, examination and intervention [x] Medication orders and management [x] Patient/Family updates as able [x] Care Coordination and Documentation. Critical Care Time (min): 35 Other Attestations: Patient condition has been discussed at length with the patient/family, I have independently reviewed the chart labs imaging and diagnostics and EKG. the goals of care and code status with the patient/family/NOK/legal patient care representative, and documented accordingly. The patient/family has been informed about the current condition and further plan of care. Agreed with the plan of care and understood without any language barrier. This documentation was created by [employer] life science taxonomist software. Every effort was made to ensure accuracy of life science taxonomist. Any obvious errors or omissions should be clarified with the author of the document. Coding Level of Care Code Critical Care >/= 30 minutes Diagnoses Abdominal abscess Diverticulitis of both large and small intestine with abscess K57.40 Lower abdominal pain R10.30 Hypotension after procedure I95.81
--- NOTE | 2025-02-14 16:51 | PC.NURSE ---
While emptying colostomy and ABD drain pt called this nurse an asshole. When asked why she stated Come on man. you are trying to kill me . Colostomy intact, stoma red. Drainage liqid brown with watermelon seeds noted.
--- NOTE | 2025-02-14 19:09 | PC.NURSE ---
Shift summary: Pt rested in bed throughout shift today. PT, OT and speech therapy seen her today. She remains confused but it is clearing up. She has called out for family some this am. She thought she was in her brother's house this am. This evening her conversation is less non-sensical. This am sclera edema noted. Her eyes are clear with no edema noted this evening. She had had High BP some today, Dr Peoples notified of need for BP med and pain med. Orders received this afternoon. Bowel sounds on the left very hypoactive. Bowel sounds on the right not auscultated this shift. Pt was started on clear liquid diet, she has ate a scant amount. No nausea or vomiting this shift. Pt has been belching. Abd drain patent and draining, 36 ml outout. Colostomy patent and draining, 30 ml output. Stoma red and oval. Urinary output of 900ml noted this shift. Replacement potassim admin PO and IV .
[2025-02-14] MEDS: cefepime 2,000 mg SDV 2000 MG IVP (19:43)
[2025-02-15] VITALS (22 sets, daily range): BP systolic 128–170; BP diastolic 74–91; PULSE 70–93; RESP 7–26; TEMP 36.4–36.9; O2SAT 92–96
[2025-02-15] MEDS: cefepime 2,000 mg SDV 2000 MG IVP ×3 (03:04→17:33)
[2025-02-15 04:19] LABS: Hematocrit 29.7 % (36-47); Hemoglobin 10.00 g/dL (11.27-16.99); Mean Corpuscular HGB Conc 33.7 g/dL (30-55); Mean Corpuscular Hemoglobin 30.0 pg (27-33); Mean Corpuscular Volume 89.2 fl (85-98); Platelet Count 323 10^3/cmm (157-399); Red Blood Count 3.33 10^6/uL (3.85-5.65); White Blood Count 10.22 10^3/uL (3.29-11.43)
[2025-02-15 04:44] LABS: Alanine Aminotransferase 16 U/L (0-33); Albumin Level 2.6 g/dL (3.5-5.2); Alkaline Phosphatase 90 U/L (35-105); Anion Gap 11.6 (5-19); Aspartate Amino Transferase 17 U/L (0-32); Blood Urea Nitrogen 8 mg/dL (8-23); Calcium 8.1 mg/dL (8.5-10.5); Carbon Dioxide 27 mmol/L (22-29); Chloride 107 mmol/L (98-107); Creatinine Clr Calc Pharmacy 180.1622; Globulin 3.1 g/dL (1.3-4.6); Glucose 121 mg/dL (65-115); Osmolality Calculated 294 mOsm/kg (285-295); Potassium 3.6 mmol/L (3.5-5.1); Sodium 142 mmol/L (136-145); Total Protein 5.7 g/dL (6.6-8.7)
[2025-02-15 05:31] LABS: Absolute Segmented Neutrophil 6.6 10/cmm (1.6-7.1); Slide Review Slide Review Perform; Total Cells Counted 100 (0-100)
[2025-02-15 05:32] LABS: Atypical Lymphs 0.0 % (0-5); Band Neutrophils Absolute 0.0 10^3/cmm (0.0-1.2)
[2025-02-15] MEDS: pantoprazole 40 mg SDV IVP ×2 (06:13→17:33)
--- NOTE | 2025-02-15 07:59 | PM.PN ---
Subjective Subjective: This is a 64-year-old female who presented to the hospital with acute abdomen was taken to the OR for exploratory laparotomy and washout of the left open and had a second OR trip for Sheryl procedure due to perforated sigmoid diverticulitis and abdominal closure. I have been requested to see this patient over the next 4 days as my colleague Dr. Callahan will be out of town. She is doing well over the last 24 hours, ostomy is productive of gas and stool no significant abdominal pain tolerating liquids. Vitals/I&O/Wt Last Vital Signs Temp 98.1 F 02/15/25 04:00 Pulse 73 02/15/25 05:32 Resp 11 L 02/15/25 04:00 BP 159/86 02/15/25 04:00 Pulse Ox 95 02/15/25 04:00 O2 Del Method Room Air 02/15/25 04:00 O2 Flow Rate 2 02/13/25 19:45 FiO2 2 02/13/25 14:00 02/14/25 02/15/25 02/15/25 22:59 06:59 14:59 Intake Total 100 / 450 Output Total 940 / 966 1024 / 1990 Balance -840 / -516 -1025 / -1541 Weight last 48 hrs Weight 163 lb 2.273 oz Weight 158 lb 11.725 oz Physical Exam GI: OTHER: Benign abdominal exam surgical incision is healing well ostomy is pink productive of gas and stool Urinary Catheter Management: Cope Latex: Cath Placed During This Visit: yes Reason for Continuing Indwelling Catheter: Accurate Measurement of Urinary Output in Critically Ill Patients Urinary Catheter Date of Insertion: 02/11/25 Urinary Catheter Time of Insertion: 01:22 Data 02/15/25 03:17 02/15/25 03:17 Micro: Microbiology 02/11/25 01:35 Gram Stain - Final Abdomen Anaerobic Culture - Preliminary Wound Culture - Final Escherichia coli A&P Assessment and plan 1. Abdominal abscess: 2. Lower abdominal pain: 3. Internal hernia: 4. Diverticulitis of colon with perforation: Plan: Patient is showing very good progression over the last 24 hours. We will continue clear liquid diet today as yesterday patient only was able to drink water but not anything that would have more calories to her intake. If she tolerates clear liquid diet today will advance to full liquid by the evening and may be GI soft in the morning tomorrow. [facility] from the [facility] standpoint. If she is ambulating Cope catheter can be removed. She can start working with physical therapy. We anticipate that she will require another 48 to 72 hours of hospital stay for advancement of diet continue antibiotics and for ostomy teaching. Patient shows understanding agrees with plan PDMP PDMP Reviewed: Not Reviewed Attestations Medical Necessity Statement*: Patient will require another 40 to 72 hours of hospital stay for advancement of diet, ostomy teaching and to ensure safe transition from Coding Level of Care Code Acute Code for [facility] Fwd Diagnoses Abdominal abscess Lower abdominal pain R10.30 Internal hernia K45.8 Diverticulitis of colon with perforation K57.20
[2025-02-15] MEDS: ATORVASTATIN 10 MG TABLET PO (09:32)
[2025-02-15] MEDS: ondansetron 2 mg/ML SDV 2 mL 4 MG IVP (11:14)
--- NOTE | 2025-02-15 13:43 | PM.DCS ---
Discharge Providers Date of Admission: 02/11/25 01:49 Date of Discharge: February 15, 2025 Attending Provider at Admission: Ch[place] Callahan MD Attending Provider at Discharge: Heather Peoples MD Diagnoses at Discharge Discharge Diagnosis 1. Abdominal abscess: 2. Lower abdominal pain: 3. Internal hernia: 4. Diverticulitis of colon with perforation: Reason for Visit Reason for Visit: Lower ABD Pain Physical Exam Narrative: General: Patient alert and oriented, cooperative, feels drowsy or tired possible hypoactive delirium Not in distress and at room air HEENT: Normocephalic, atraumatic, breathing comfortably on room air Cardio: Regular rate rhythm, normal S1-S2, no murmurs rubs gallops, JVD normal Respiratory: Good bilateral air entry through mechanical ventilation, no wheezes no rhonchi appreciated GI: Abdomen soft, nontender, no distention found and normal bowel sounds, incisions clean Neuro: Cooperative alert and oriented grossly unremarkable neuroexam Behavior: Cooperative and appropriate Extremities: Pulses 2+, no edema, no cyanosis, mild pallor positive Skin: Grossly unremarkable exam Urinary Catheter Management: Cope Latex: Cath Placed During This Visit: yes Reason for Continuing Indwelling Catheter: Accurate Measurement of Urinary Output in Critically Ill Patients Urinary Catheter Date of Insertion: 02/11/25 Urinary Catheter Time of Insertion: 01:22 Discharge Data Studies Completed and Pending Completed Studies During Hospitalization Category Date Time Status CT abdomen pelvis w con* [id number] Stat Cat Scan 02/10/25 20:[address] head wo con* [id number] Stat Cat Scan 02/13/25 19:45 Completed XR chest 1V portable [id number] Stat Exams 02/11/25 02:19 Completed XR chest 1V portable [id number] Stat Exams 02/11/25 04:03 Completed Pending at discharge Category Date Time Status Anaerobic Culture Routine Lab 02/11/25 01:35 Results Blood Culture AM LABS Lab 02/11/25 06:33 Results Blood Culture Routine Lab 02/11/25 15:28 Results CBC Auto Diff [Complete Blood Count w/Auto] AM LABS Lab 02/16/25 04:00 Ordered CMP [Comprehensive Metabolic Panel] AM LABS Lab 02/16/25 04:00 Ordered Wound Culture and Gram Stain Routine Lab 02/11/25 01:35 Results Pathology: Surgical [PTH] Routine Pth 02/12/25 14:34 Received Radiology Impressions Abdomen/Pelvis CT 02/10/25 20:56 IMPRESSION: Findings most consistent with possible internal hernia in the mid and lower abdomen and upper pelvis This contains small bowel, sigmoid colon and cecum. There are thickened loops of the small bowel and especially sigmoid colon. Sigmoid wall is markedly edematous. There is surrounding stranding and fluid and there maybe some pneumatosis . The antrum of the stomach is also involved. There is a twisting between the body and antrum narrowing partially obstructing stomach. Antrum has thickened wall. There is also reflux from the stomach into the esophagus. 3. Multi fibroid uterus. Centrally maybe mildly dilated intrauterine canal measuring 9 mm Nonemergent surgical consult recommended. ADDENDUM: 02/11/25 0041 The impression should state emergent surgical consult recommended. This discussed with physician. COMMENT: THIS REPORT CONTAINS FINDINGS THAT MAY BE CRITICAL TO PATIENT CARE. The exam findings were verbally communicated by me to JOSH LY via telephone conference at 12:39 AM CDT on 02/11/2025. The findings were acknowledged and understood. Chest X-Ray 02/11/25 04:03 IMPRESSION: Life support lines as described above. Head CT 02/13/25 19:45 IMPRESSION: No definite acute intracranial process. Laboratory Results WBC 10.22 10^3/uL (3.29-11.43) 02/15/25 03:17 RBC 3.33 10^6/uL (3.85-5.65) L 02/15/25 03:17 Hgb 10.00 g/dL (11.27-16.99) L 02/15/25 03:17 Hct 29.7 % (36-47) L 02/15/25 03:17 MCV 89.2 fl (85-98) 02/15/25 03:17 MCH 30.0 pg (27-33) 02/15/25 03:17 MCHC 33.7 g/dL (30-55) 02/15/25 03:17 RDW 14.6 % (12.1-15.1) 02/15/25 03:17 Plt Count 323 10^3/cmm (157-399) 02/15/25 03:17 MPV 9.9 fL (7.4-10.4) 02/15/25 03:17 Neut % (Auto) 73.0 % 02/14/25 03:46 Lymph % (Auto) Not Reportable 02/15/25 03:17 [place] % (Auto) Not Reportable 02/15/25 03:17 Eos % (Auto) 0.6 % 02/14/25 03:46 Baso % (Auto) 0.5 % 02/14/25 03:46 Neut # (Auto) 8.09 10^3/uL (1.8-7.7) H 02/14/25 03:46 Lymph # (Auto) Not Reportable 02/15/25 03:17 [place] # (Auto) Not Reportable 02/15/25 03:17 Eos # (Auto) 0.1 10^3/uL (0.0-0.8) 02/14/25 03:46 Baso # (Auto) 0.1 10^3/uL (0.0-0.1) 02/14/25 03:46 Nucleated RBC % (auto) 0 % 02/14/25 03:46 Total Counted 100 (0-100) 02/15/25 03:17 Atypical Lymphs % 0.0 % (0-5) 02/15/25 03:17 Absolute Neutrophils 6.6 10^3/cmm (1.4-6.5) H 02/15/25 03:17 Segmented Neutrophils 65 % 02/15/25 03:17 Band Neutrophils 0.0 % 02/15/25 03:17 Absolute Lymphocytes 1.7 10^3/cmm (1.2-3.4) 02/15/25 03:17 Lymphocytes (Manual) 17 % 02/15/25 03:17 Monocytes (Manual) 8.0 % 02/15/25 03:17 Absolute Monocytes 0.8 10^3/cmm (0.1-0.6) H 02/15/25 03:17 Eosinophils (Manual) 4 % 02/15/25 03:17 Absolute Eosinophils 0.4 10^3/cmm (0.0-0.7) 02/15/25 03:17 Basophils (Manual) 0.0 % 02/15/25 03:17 Absolute Basophils 0.0 10^3/cmm (0.0-0.2) 02/15/25 03:17 Metamyelocytes 1.0 % 02/15/25 03:17 Myelocytes 5.0 % 02/15/25 03:17 Nucleated RBCs # 0.0 /100WBC 02/14/25 03:46 Platelet Estimate Normal (Normal) 02/15/25 03:17 ESR 26 mm/hr (0-15) H 02/11/25 04:07 Specimen Type Arterial 02/13/25 18:49 Sample Site Radial, right 02/13/25 18:49 ABG pH 7.36 (7.35-7.45) 02/13/25 18:49 ABG pCO2 41.1 mmHg (35-45) 02/13/25 18:49 ABG pO2 106.0 mmHg (80.0-100.0) H 02/13/25 18:49 ABG PO2/FiO2 Ratio 327 02/11/25 03:15 ABG HCO3 23.1 mmol/L (22-26) 02/13/25 18:49 ABG O2 Saturation 98.9 02/13/25 18:49 ABG Base Excess -2.3 mmol/L (-2.0-2.0) L 02/13/25 18:49 Hair Test Pos 02/13/25 18:49 A-a O2 Gradient 0.0 mmHg (5-10) L 02/13/25 18:49 Hematocrit 33.9 % (37-47) L 02/13/25 18:49 Hgb O2 Saturation 96.8 % (95-100) 02/13/25 18:49 Carboxyhemoglobin 1.0 %THgb (0.4-20.1) 02/13/25 18:49 Methemoglobin 1.1 % (0.4-1.5) 02/13/25 18:49 Total Hemoglobin 11.1 g/dL (12-16) L 02/13/25 18:49 Sodium 146.0 mmol/L (131-143) H 02/13/25 18:49 Potassium 3.6 mmol/L (3.5-5.0) 02/13/25 18:49 Glucose 118.0 mg/dL (70-115) H 02/13/25 18:49 Ionized Calcium 1.2 mmol/L (1.1-1.4) 02/13/25 18:49 O2 Delivery Device Nc 02/13/25 18:49 O2 Liters/Min 2.0 % 02/13/25 18:49 FiO2 40.0 % 02/11/25 03:15 Tidal Volume 0.40 02/11/25 03:15 PEEP 5.0 cmH20 02/11/25 03:15 [place] [employer]ingle Roofer ID [email or web address] 02/13/25 18:49 Sodium 142 mmol/L (136-145) 02/15/25 03:17 Potassium 3.6 mmol/L (3.5-5.1) 02/15/25 03:17 Chloride 107 mmol/L (98-107) 02/15/25 03:17 Carbon Dioxide 27 mmol/L (22-29) 02/15/25 03:17 Anion Gap 11.6 (5-19) 02/15/25 03:17 BUN 8 mg/dL (8-23) 02/15/25 03:17 Creatinine 0.3 mg/dL (0.5-0.9) L 02/15/25 03:17 GFR Calculation 224.0 mL/min (90-130) H 02/15/25 03:17 Glucose 121 mg/dL (65-115) H 02/15/25 03:17 POC Glucose 108 mg/dL (70-110) 02/15/25 07:44 Calculated Osmolality 294 mOsm/kg (285-295) 02/15/25 03:17 Lactic Acid 1.4 mmol/L (0.5-2.2) 02/10/25 21:03 Lactate 0.9 mmol/L (0.5-2.2) 02/11/25 04:07 Calcium 8.1 mg/dL (8.5-10.5) L 02/15/25 03:17 Phosphorus 2.5 mg/dL (2.5-4.5) 02/11/25 04:07 Magnesium 1.6 mg/dL (1.7-2.3) L 02/11/25 04:07 Total Bilirubin 0.4 mg/dL (0.15-1.2) 02/15/25 03:17 AST 17 U/L (0-32) 02/15/25 03:17 ALT 16 U/L (0-33) 02/15/25 03:17 Alkaline Phosphatase 90 U/L (35-105) 02/15/25 03:17 C-Reactive Protein 197.1 mg/L (0.0-4.9) H 02/10/25 21:03 C-React Prot High Sens 26.710 mg/dL (0.0-0.3) H 02/11/25 04:07 Total Protein 5.7 g/dL (6.6-8.7) L 02/15/25 03:17 Albumin 2.6 g/dL (3.5-5.2) L 02/15/25 03:17 Globulin 3.1 g/dL (1.3-4.6) 02/15/25 03:17 Lipase 10 U/L (13-60) L 02/10/25 21:03 Urine Color [place] (Yellow) A 02/10/25 22:20 Urine Appearance Clear (CLEAR) 02/10/25 22:20 Urine pH 5.5 (5-7) 02/10/25 22:20 Ur Specific [place] 1.072 (1.005-1.030) H 02/10/25 22:20 Urine Protein Trace (Negative) A 02/10/25 22:20 Urine Glucose (UA) Negative (Normal) 02/10/25 22:20 Urine Ketones 2+ (Negative) H 02/10/25 22:20 Urine Blood Negative (Negative) 02/10/25 22:20 Urine Nitrate Positive (Negative) A 02/10/25 22:20 Urine Bilirubin 1+ (Negative) H 02/10/25 22:20 Urine Urobilinogen 1.0 mg/dL (Negative) 02/10/25 22:20 Ur Leukocyte Esterase 1+ (Negative) A 02/10/25 22:20 Urine RBC 0-2 /hpf (0-2) 02/10/25 22:20 Urine WBC 0-5 /hpf (0-5) 02/10/25 22:20 Ur Squamous Epith Cells 0-5 /hpf (0-5) 02/10/25 22:20 Urine Bacteria None seen /hpf (NONE) 02/10/25 22:20 Hyaline Casts 0.81 /lpf 02/10/25 22:20 Vitals Last Vital Signs Temp 97.8 F 02/15/25 12:00 Pulse 74 02/15/25 12:00 Resp 11 L 02/15/25 12:00 BP 147/89 02/15/25 12:00 Pulse Ox 95 02/15/25 12:00 O2 Del Method Room Air 02/15/25 12:00 O2 Flow Rate 2 02/13/25 19:45 FiO2 2 02/13/25 14:00 Discharge Plan Discharge Patient Disposition: Home Condition: Fair Prescriptions: No Action atorvastatin [Lipitor] 10 mg tablet 10 mg PO DAILY bisoprolol-hydrochlorothiazide 2.5-6.25 mg tablet 1 tab PO DAILY phenazopyridine [Pyridium] 100 mg tablet 100 mg PO TID PRN (Reason: pain) Qty: 6 0RF nitrofurantoin monohyd/m-cryst [Macrobid] 100 mg capsule 100 mg PO Q12H 7 Days Qty: 14 0RF Rx Instructions: must administer with a meal/food Patient Instructions: Opioid Safety, Patient Portal & [facility] Instructions Coding Level of Care Code Acute Code for [facility] Fwd Diagnoses Abdominal abscess Lower abdominal pain R10.30 Internal hernia K45.8 Diverticulitis of colon with perforation K57.20
--- NOTE | 2025-02-15 13:44 | PM.PN ---
Subjective Subjective: This is a 64-year-old female who presented to the hospital with acute abdomen was taken to the OR for exploratory laparotomy and washout of the left open and had a second OR trip for Sheryl procedure due to perforated sigmoid diverticulitis and abdominal closure. The patient was seen in the morning as he was following with occupational/physical therapist. She is more alert and oriented today and able to move around.. Vitals/I&O/Wt Last Vital Signs Temp 97.8 F 02/15/25 12:00 Pulse 74 02/15/25 12:00 Resp 11 L 02/15/25 12:00 BP 147/89 02/15/25 12:00 Pulse Ox 95 02/15/25 12:00 O2 Del Method Room Air 02/15/25 12:00 O2 Flow Rate 2 02/13/25 19:45 FiO2 2 02/13/25 14:00 02/14/25 02/15/25 02/15/25 22:59 06:59 14:59 Intake Total 100 / 450 240 / 240 Output Total 940 / 966 1024 / 1990 160 / 160 Balance -840 / -516 -1025 / -1541 80 / 80 Weight last 48 hrs Weight 74 kg Weight 72 kg Physical Exam Narrative: General: Patient alert and oriented, cooperative, comfortably was seen walking with occupational/physical therapist Not in distress and at room air HEENT: Normocephalic, atraumatic, breathing comfortably on room air Cardio: Regular rate rhythm, normal S1-S2, no murmurs rubs gallops, JVD normal Respiratory: Good bilateral air entry through mechanical ventilation, no wheezes no rhonchi appreciated GI: Abdomen soft, nontender, no distention found and normal bowel sounds, incisions clean Neuro: Cooperative alert and oriented grossly unremarkable neuroexam Behavior: Cooperative and appropriate Extremities: Pulses 2+, no edema, no cyanosis, mild pallor positive Skin: Grossly unremarkable exam Urinary Catheter Management: Cope Latex: Cath Placed During This Visit: yes Reason for Continuing Indwelling Catheter: Accurate Measurement of Urinary Output in Critically Ill Patients Urinary Catheter Date of Insertion: 02/11/25 Urinary Catheter Time of Insertion: 01:22 Data 02/15/25 03:17 02/15/25 03:17 Micro: Microbiology 02/11/25 01:35 Gram Stain - Final Abdomen Anaerobic Culture - Preliminary Wound Culture - Final Escherichia coli A&P Assessment and plan 1. Abdominal abscess: 2. Lower abdominal pain: 3. Internal hernia: 4. Diverticulitis of colon with perforation: Plan: Diverticulitis with colonic abscess and ischemia Status post surgical second look on 02/12 s/p colostomy. Discussed with surgery, they are happy with her progress so far. S/p extubation doing well. Passed swallowing evaluation and able to swallow. Proceed diet as tolerated Intake and output monitoring Electrolytes and renal functions monitoring and correction accordingly Hypoactive delirium: Resolved The patient was having hypoactive delirium secondary to effect of sedatives that she was having during intubation and s/p extubation. With better pain control and orientation and supportive measures the patient is better Continue to monitor Small amount of output produced from colostomy. Continue to reassess resumption of bowel function. - Blood culture ordered, preliminary negative - Patient antibiotics tailored according to the wound culture results with cefepime - Clear fluid diet. And increase as tolerated - Liquid analgesia post laparotomy -High blood pressure: Currently better and controlled Continue amlodipine 5 mg and adequate analgesia Disposition:Transfer to [facility] PDMP PDMP Reviewed: Not Reviewed Attestations Medical Necessity Statement*: The patient will stay more than 2 midnights in the hospital for the management of her s/p surgery general mild ICU related physical deconditioning needing occupational and physical therapist on board And also diet advancement with tolerance as per the surgery plan before safe discharge Time Spent in Patient Care: 16 - 35 minutes (>than 50% of time spent in counselling and/or direct pt care on unit). Other Attestations: Patient condition has been discussed at length with the patient/family, I have independently reviewed the chart labs imaging and diagnostics and EKG. the goals of care and code status with the patient/family/NOK/legal branch service representative, and documented accordingly. The patient/family has been informed about the current condition and further plan of care. Agreed with the plan of care and understood without any language barrier. This documentation was created by [employer] cardiac nurse specialist software. Every effort was made to ensure accuracy of cardiac nurse specialist. Any obvious errors or omissions should be clarified with the author of the document. Coding Level of Care Code 11251 Diagnoses Abdominal abscess Lower abdominal pain R10.30 Internal hernia K45.8 Diverticulitis of colon with perforation K57.20
[2025-02-16] VITALS (9 sets, daily range): BP systolic 129–150; BP diastolic 72–81; PULSE 64–76; RESP 14–18; TEMP 36.5–37; O2SAT 94–97
[2025-02-16] MEDS: cefepime 2,000 mg SDV 2000 MG IVP ×3 (01:31→17:34)
[2025-02-16 05:19] LABS: Hematocrit 31.7 % (36-47); Hemoglobin 10.40 g/dL (11.27-16.99); Mean Corpuscular HGB Conc 32.8 g/dL (30-55); Mean Corpuscular Hemoglobin 29.3 pg (27-33); Mean Corpuscular Volume 89.3 fl (85-98); Nucleated Red Blood Cells % 0 %; Platelet Count 339 10^3/cmm (157-399); Red Blood Count 3.55 10^6/uL (3.85-5.65); White Blood Count 10.46 10^3/uL (3.29-11.43)
[2025-02-16] MEDS: pantoprazole 40 mg SDV IVP ×2 (05:40→17:34)
[2025-02-16 06:09] LABS: Slide Review Slide Review Perform
[2025-02-16 06:10] LABS: Alanine Aminotransferase 15 U/L (0-33); Albumin Level 2.8 g/dL (3.5-5.2); Alkaline Phosphatase 90 U/L (35-105); Anion Gap 13.4 (5-19); Aspartate Amino Transferase 21 U/L (0-32); Blood Urea Nitrogen 8 mg/dL (8-23); Calcium 8.3 mg/dL (8.5-10.5); Carbon Dioxide 28 mmol/L (22-29); Chloride 101 mmol/L (98-107); Creatinine Clr Calc Pharmacy 183.3456; Globulin 3.1 g/dL (1.3-4.6); Glucose 117 mg/dL (65-115); Osmolality Calculated 287 mOsm/kg (285-295); Potassium 3.4 mmol/L (3.5-5.1); Sodium 139 mmol/L (136-145); Total Protein 5.9 g/dL (6.6-8.7)
[2025-02-16] MEDS: ATORVASTATIN 10 MG TABLET PO (08:41)
[2025-02-16] MEDS: polyethylene glycol 3350 Pkt 17 gm PO (09:35)
--- NOTE | 2025-02-16 10:44 | P.PN_ITS ---
Subjective 2 Subjective: Patient showing very good progression over the last 24 hours tolerating liquid diet and was advanced to full liquid diet for this morning, ostomy is productive of gas and stool. No significant abdominal pain. Vitals/I&O/Wt Last Vital Signs Temp 98.3 F 02/16/25 07:46 Pulse 73 02/16/25 07:46 Resp 17 02/16/25 07:46 BP 149/73 02/16/25 07:46 Pulse Ox 96 02/16/25 07:46 O2 Del Method Room Air 02/16/25 07:46 O2 Flow Rate 2 02/13/25 19:45 FiO2 2 02/13/25 14:00 02/15/25 02/16/25 02/16/25 22:59 06:59 14:59 Intake Total 300 / 900 500 / 1400 360 / 360 Output Total 220 / 410 500 / 910 Balance 80 / 490 0 / 490 330 / 330 Weight last 48 hrs Weight 164 lb 9.6 oz Weight 163 lb 2.273 oz Physical Exam 2 GI: OTHER: Benign abdominal exam abdomen is soft appropriately tender to palpation surgical incisions healing well ostomy bag is in place ostomy is productive of gas and stool. LAMONT drain with serous output Urinary Catheter Management: Cope Latex: Cath Placed During This Visit: yes, but has since been removed by the nurse Reason for Continuing Indwelling Catheter: Decision to DC Catheter Urinary Catheter Date of Insertion: 02/11/25 Urinary Catheter Time of Insertion: 01:22 Date Urinary Catheter Removed: 02/15/25 Time Urinary Catheter Discontinued: 16:00 Data 02/16/25 04:52 02/16/25 04:52 Micro: Microbiology 02/11/25 06:33 Blood Culture - Final Blood NO GROWTH AFTER 5 DAYS 02/11/25 06:26 Blood Culture - Final Blood NO GROWTH AFTER 5 DAYS 02/11/25 04:06 Blood Culture - Final Blood NO GROWTH AFTER 5 DAYS 02/11/25 04:07 Blood Culture - Final Blood NO GROWTH AFTER 5 DAYS 02/11/25 01:35 Gram Stain - Final Abdomen Anaerobic Culture - Preliminary Bacteroi caccae(b fragilis grp Wound Culture - Final Escherichia coli A&P Assessment and plan 1. Abdominal abscess: 2. Lower abdominal pain: 3. Diverticulitis of colon with perforation: Plan: Patient showing good progression over the last 24 hours. Tolerating diet we will advance to full liquid diet for today and tomorrow we will start GI soft diet. We talked with the patient regarding disposition, she comes from [place] she will go there upon discharge and will prefer to go to rehab rather than directly home, patient will discuss this with medical team as well as case management. Unfortunately we do not have a family caseworker for Tuesday and Tuesday and therefore will likely have to stay until morning date to plan for discharge and ostomy supplies. Will plan for advancement to GI soft diet in the morning tomorrow. Patient shows understanding agrees with the plan. All other management per medical team PDMP PDMP Reviewed: Not Reviewed Attestations 2 Medical Necessity Statement*: Patient will require at least 48 hours more of hospital stay for discharge planning, ostomy teaching and to ensure that he/she has adequate ostomy supplies when discharge Coding Level of Care Code Acute Code for [facility] Diagnoses Abdominal abscess Lower abdominal pain R10.30 Diverticulitis of colon with perforation K57.20
[2025-02-16] MEDS: ondansetron 2 mg/ML SDV 2 mL 4 MG IVP (12:22)
--- NOTE | 2025-02-16 16:50 | P.PN_ITS ---
Subjective 2 Subjective: Patient showing very good progression over the last 24 hours tolerating liquid diet and was advanced to full liquid diet for this morning, ostomy is productive of gas and stool. No significant abdominal pain. Vitals/I&O/Wt Last Vital Signs Temp 97.7 F 02/16/25 11:57 Pulse 76 02/16/25 15:18 Resp 14 02/16/25 11:57 BP 145/78 02/16/25 11:57 Pulse Ox 97 02/16/25 11:57 O2 Del Method Room Air 02/16/25 11:57 O2 Flow Rate 2 02/13/25 19:45 FiO2 2 02/13/25 14:00 02/16/25 02/16/25 02/16/25 06:59 14:59 22:59 Intake Total 500 / 1400 600 / 600 Output Total 500 / 910 80 / 80 Balance 0 / 490 520 / 520 Weight last 48 hrs Weight 74.661 kg Weight 74 kg Physical Exam 2 Narrative: General: Patient alert and oriented, cooperative, comfortably was seen walking with occupational/physical therapist Not in distress and at room air HEENT: Normocephalic, atraumatic, breathing comfortably on room air Cardio: Regular rate rhythm, normal S1-S2, no murmurs rubs gallops, JVD normal Respiratory: Good bilateral air entry with normal vesicular breathing and no wheezes or added sounds GI: Abdomen soft, nontender, no distention found and normal bowel sounds, incisions clean with colostomy and small output coming out of it. Neuro: Cooperative alert and oriented grossly unremarkable neuroexam Behavior: Cooperative and appropriate Extremities: Pulses 2+, no edema, no cyanosis, mild pallor positive Skin: Grossly unremarkable exam Urinary Catheter Management: Cope Latex: Cath Placed During This Visit: yes, but has since been removed by the nurse Reason for Continuing Indwelling Catheter: Decision to DC Catheter Urinary Catheter Date of Insertion: 02/11/25 Urinary Catheter Time of Insertion: 01:22 Date Urinary Catheter Removed: 02/15/25 Time Urinary Catheter Discontinued: 16:00 Data 02/16/25 04:52 02/16/25 04:52 Micro: Microbiology 02/11/25 15:28 Blood Culture - Final Blood NO GROWTH AFTER 5 DAYS 02/11/25 15:28 Blood Culture - Final Blood NO GROWTH AFTER 5 DAYS 02/11/25 06:33 Blood Culture - Final Blood NO GROWTH AFTER 5 DAYS 02/11/25 06:26 Blood Culture - Final Blood NO GROWTH AFTER 5 DAYS 02/11/25 04:06 Blood Culture - Final Blood NO GROWTH AFTER 5 DAYS 02/11/25 04:07 Blood Culture - Final Blood NO GROWTH AFTER 5 DAYS 02/11/25 01:35 Gram Stain - Final Abdomen Anaerobic Culture - Preliminary Bacteroi caccae(b fragilis grp Wound Culture - Final Escherichia coli A&P Assessment and plan 1. Abdominal abscess: 2. Lower abdominal pain: 3. Internal hernia: 4. Diverticulitis of colon with perforation: Plan: Diverticulitis with colonic abscess and ischemia Status post surgical second look on 02/12 s/p colostomy. Discussed with surgery, they are happy with her progress so far. S/p extubation doing well. Passed swallowing evaluation and able to swallow. Proceed diet as tolerated Intake and output monitoring Electrolytes and renal functions monitoring and correction accordingly Hypoactive delirium: Resolved The patient was having hypoactive delirium secondary to effect of sedatives that she was having during intubation and s/p extubation. With better pain control and orientation and supportive measures the patient is better Continue to monitor Small amount of output produced from colostomy. Continue to reassess resumption of bowel function. - Blood culture ordered, preliminary negative - Patient antibiotics tailored according to the wound culture results with cefepime - Clear fluid diet. And increase as tolerated per surgery plan - Adequate analgesia. To continue -High blood pressure: Currently better and controlled Continue amlodipine 5 mg and adequate analgesia VTE: Enoxaparin 40 subcut daily Diet: Full liquid diet and then to once as tolerated as per surgery plan PDMP PDMP Reviewed: Not Reviewed Attestations 2 Medical Necessity Statement*: Patient will require at least 48 hours more of hospital stay for discharge planning, ostomy teaching and to ensure that he/she has adequate ostomy supplies when discharge Time Spent in Patient Care: 16 - 35 minutes (>than 50% of time sp ent in counselling and/or direct pt care on unit) . Other Attestations: Patient condition has been discussed at length with the patient/family, I have independently reviewed the chart labs imaging and diagnostics and EKG. the goals of care and code status with the patient/family/NOK/legal sales representatives, and documented accordingly. The patient/family has been informed about the current condition and further plan of care. Agreed with the plan of care and understood without any language barrier. This documentation was created by [employer] criminal justice professor software. Every effort was made to ensure accuracy of criminal justice professor. Any obvious errors or omissions should be clarified with the author of the document. Coding Level of Care Code 60990 Diagnoses Abdominal abscess Lower abdominal pain R10.30 Internal hernia K45.8 Diverticulitis of colon with perforation K57.20
--- NOTE | 2025-02-16 22:37 | PC.NURSE ---
1030 Pt up and ambulating in hallway. Ambulated to end of call from her room 261 past room 273 , back to room 258 and then back to her room. Approximately 150 feet. Tolerated well
[2025-02-17] VITALS (7 sets, daily range): BP systolic 136–169; BP diastolic 69–81; PULSE 64–72; RESP 16–19; TEMP 36.3–37.1; O2SAT 95–97
[2025-02-17] MEDS: cefepime 2,000 mg SDV 2000 MG IVP ×3 (02:16→17:38)
[2025-02-17 03:55] LABS: Hematocrit 30.7 % (36-47); Hemoglobin 10.00 g/dL (11.27-16.99); Mean Corpuscular HGB Conc 32.6 g/dL (30-55); Mean Corpuscular Hemoglobin 29.3 pg (27-33); Mean Corpuscular Volume 90.0 fl (85-98); Platelet Count 318 10^3/cmm (157-399); Red Blood Count 3.41 10^6/uL (3.85-5.65); White Blood Count 9.75 10^3/uL (3.29-11.43)
[2025-02-17 04:28] LABS: Slide Review Slide Review Perform
[2025-02-17 04:32] LABS: Alanine Aminotransferase 15 U/L (0-33); Albumin Level 2.8 g/dL (3.5-5.2); Alkaline Phosphatase 97 U/L (35-105); Anion Gap 12.8 (5-19); Aspartate Amino Transferase 23 U/L (0-32); Blood Urea Nitrogen 11 mg/dL (8-23); Calcium 8.4 mg/dL (8.5-10.5); Carbon Dioxide 28 mmol/L (22-29); Chloride 103 mmol/L (98-107); Globulin 3.0 g/dL (1.3-4.6); Glucose 111 mg/dL (65-115); Osmolality Calculated 290 mOsm/kg (285-295); Potassium 3.8 mmol/L (3.5-5.1); Sodium 140 mmol/L (136-145); Total Protein 5.8 g/dL (6.6-8.7)
[2025-02-17 04:48] LABS: Creatinine Clr Calc Pharmacy 137.2651
[2025-02-17 05:33] LABS: Absolute Segmented Neutrophil 5.2 10/cmm (1.6-7.1); Atypical Lymphs 1.0 % (0-5); Band Neutrophils Absolute 0.6 10^3/cmm (0.0-1.2); Total Cells Counted 100 (0-100)
[2025-02-17] MEDS: pantoprazole 40 mg SDV IVP ×2 (05:33→17:38)
--- NOTE | 2025-02-17 06:37 | SUR.OPER ---
0400 Pt ambulated in hallway approximately 200 feet. Tolerated very well
[2025-02-17] MEDS: ondansetron 2 mg/ML SDV 2 mL 4 MG IVP (08:26)
[2025-02-17] MEDS: polyethylene glycol 3350 Pkt 17 gm PO ×2 (09:00→17:38)
[2025-02-17] MEDS: ATORVASTATIN 10 MG TABLET PO (09:01)
--- NOTE | 2025-02-17 09:21 | P.PN_ITS ---
Subjective 2 Subjective: Excellent progression, was advanced to GI soft diet this morning and she tolerated breakfast no significant abdominal distention ostomy palpable gas in the stool some pain in the left lower quadrant Vitals/I&O/Wt Last Vital Signs Temp 98.6 F 02/17/25 07:20 Pulse 67 02/17/25 07:20 Resp 18 02/17/25 07:20 BP 169/81 02/17/25 07:20 Pulse Ox 96 02/17/25 07:20 O2 Del Method Room Air 02/17/25 07:20 O2 Flow Rate 2 02/13/25 19:45 FiO2 2 02/13/25 14:00 02/16/25 02/17/25 02/17/25 22:59 06:59 14:59 Intake Total 390 / 990 850 / 1840 120 / 120 Output Total 900 / 980 890 / 1870 185 / 185 Balance -510 / 10 -40 / -30 -65 / -65 Weight last 48 hrs Weight 164 lb Weight 164 lb 9.6 oz Physical Exam 2 GI: OTHER: Benign abdominal exam abdomen soft appropriately tender nondistended good bowel sounds ostomy with gas and stool in LAMONT with serosanguineous drainage Urinary Catheter Management: Cope Latex: Cath Placed During This Visit: yes, but has since been removed by the nurse Reason for Continuing Indwelling Catheter: Decision to DC Catheter Urinary Catheter Date of Insertion: 02/11/25 Urinary Catheter Time of Insertion: 01:22 Date Urinary Catheter Removed: 02/15/25 Time Urinary Catheter Discontinued: 16:00 Data 02/17/25 03:02 02/17/25 03:02 Micro: Microbiology 02/11/25 01:35 Gram Stain - Final Abdomen Anaerobic Culture - Preliminary Bacteroi caccae(b fragilis grp Wound Culture - Final Escherichia coli 02/11/25 15:28 Blood Culture - Final Blood NO GROWTH AFTER 5 DAYS 02/11/25 15:28 Blood Culture - Final Blood NO GROWTH AFTER 5 DAYS 02/11/25 06:33 Blood Culture - Final Blood NO GROWTH AFTER 5 DAYS 02/11/25 06:26 Blood Culture - Final Blood NO GROWTH AFTER 5 DAYS 02/11/25 04:06 Blood Culture - Final Blood NO GROWTH AFTER 5 DAYS 02/11/25 04:07 Blood Culture - Final Blood NO GROWTH AFTER 5 DAYS A&P Assessment and plan 1. Diverticulitis of colon with perforation: Plan: Patient showing excellent progression. We are currently working on obtaining supplies for the patient she has decided to stay in [place] for about a month for postoperative care if we are able to get supplies by tomorrow she will be able to go home in the morning after we have verified that she is tolerating a GI soft diet for 24 hours. PDMP PDMP Reviewed: Not Reviewed Attestations 2 Medical Necessity Statement*: Possible discharge tomorrow Coding Level of Care Code Acute Code for [facility] Diagnoses Diverticulitis of colon with perforation K57.20
--- NOTE | 2025-02-17 13:11 | PM.PN ---
Subjective Subjective: Excellent progression, was advanced to GI soft diet this morning and she tolerated breakfast no significant abdominal distention ostomy palpable gas in the stool some pain in the left lower quadrant the patient did not voiced any complains, moving around with some assistance and overall better Vitals/I&O/Wt Last Vital Signs Temp 98.4 F 02/17/25 11:11 Pulse 69 02/17/25 11:11 Resp 19 H 02/17/25 11:11 BP 153/79 02/17/25 11:11 Pulse Ox 96 02/17/25 11:11 O2 Del Method Room Air 02/17/25 11:11 O2 Flow Rate 2 02/13/25 19:45 FiO2 2 02/13/25 14:00 02/16/25 02/17/25 02/17/25 22:59 06:59 14:59 Intake Total 390 / 990 850 / 1840 120 / 120 Output Total 900 / 980 890 / 1870 280 / 280 Balance -510 / 10 -40 / -30 -160 / -160 Weight last 48 hrs Weight 74.389 kg Weight 74.661 kg Physical Exam Narrative: General: Patient alert and oriented, cooperative, comfortably was seen walking with occupational/physical therapist Not in distress and at room air HEENT: Normocephalic, atraumatic, breathing comfortably on room air Cardio: Regular rate rhythm, normal S1-S2, no murmurs rubs gallops, JVD normal Respiratory: Good bilateral air entry with normal vesicular breathing and no wheezes or added sounds GI: Abdomen soft, nontender, no distention found and normal bowel sounds, incisions clean with colostomy and small output coming out of it. Neuro: Cooperative alert and oriented grossly unremarkable neuroexam Behavior: Cooperative and appropriate Extremities: Pulses 2+, no edema, no cyanosis, mild pallor positive Skin: Grossly unremarkable exam Urinary Catheter Management: Cope Latex: Cath Placed During This Visit: yes, but has since been removed by the nurse Reason for Continuing Indwelling Catheter: Decision to DC Catheter Urinary Catheter Date of Insertion: 02/11/25 Urinary Catheter Time of Insertion: 01:22 Date Urinary Catheter Removed: 02/15/25 Time Urinary Catheter Discontinued: 16:00 Data 02/17/25 03:02 02/17/25 03:02 Micro: Microbiology 02/11/25 01:35 Gram Stain - Final Abdomen Anaerobic Culture - Preliminary Bacteroi caccae(b fragilis grp Wound Culture - Final Escherichia coli 02/11/25 15:28 Blood Culture - Final Blood NO GROWTH AFTER 5 DAYS 02/11/25 15:28 Blood Culture - Final Blood NO GROWTH AFTER 5 DAYS A&P Assessment and plan 1. Abdominal abscess: 2. Lower abdominal pain: 3. Internal hernia: 4. Diverticulitis of colon with perforation: Plan: Diverticulitis with colonic abscess and ischemia Status post surgical second look on 02/12 s/p colostomy. Discussed with surgery, they are happy with her progress so far. S/p extubation doing well. Passed swallowing evaluation and able to swallow. Proceed diet as tolerated Intake and output monitoring Electrolytes and renal functions monitoring and correction accordingly Hypoactive delirium: Resolved The patient was having hypoactive delirium secondary to effect of sedatives that she was having during intubation and s/p extubation. With better pain control and orientation and supportive measures the patient is better Continue to monitor Small amount of output produced from colostomy. Continue to reassess resumption of bowel function. - Blood culture ordered, preliminary negative - Patient antibiotics tailored according to the wound culture results with cefepime - Clear fluid diet. And increase as tolerated per surgery plan - Adequate analgesia. To continue -High blood pressure: Currently better and controlled Continue amlodipine 5 mg and adequate analgesia and PCP referral at the time of discharge VTE: Enoxaparin 40 subcut daily Diet: Full liquid diet and then to once as tolerated as per surgery plan PDMP PDMP Reviewed: Not Reviewed Attestations Medical Necessity Statement*: Patient will require at least 24 hours for diet tolerance monitoring post op as per the plan from the surgery Time Spent in Patient Care: 16 - 35 minutes (>than 50% of time spent in counselling and/or direct pt care on unit). Other Attestations: Patient condition has been discussed at length with the patient/family, I have independently reviewed the chart labs imaging and diagnostics and EKG. the goals of care and code status with the patient/family/NOK/legal customer account representative, and documented accordingly. The patient/family has been informed about the current condition and further plan of care. Agreed with the plan of care and understood without any language barrier. This documentation was created by [employer] blade grader operator software. Every effort was made to ensure accuracy of blade grader operator. Any obvious errors or omissions should be clarified with the author of the document. Coding Level of Care Code 80864 Diagnoses Abdominal abscess Lower abdominal pain R10.30 Internal hernia K45.8 Diverticulitis of colon with perforation K57.20
[2025-02-18 00:03] LABS: Procalcitonin 0.10 ng/mL (0-0.5); Thyroid Stimulating Hormone 5.09 uIU/mL (0.27-4.20)
[2025-02-18 00:25] LABS: Estmated Average Glucose 117; Hemoglobin A1C 5.7 % (4.0-6.0)
[2025-02-18 00:28] LABS: Iron 26 ug/dL (37-145); Total Iron Binding Capacity 143 mcg/dl; Unsaturated Iron Binding 117 ug/dL (112-347)
[2025-02-18 01:15] LABS: Vitamin B12 > 2000 pg/mL (232-1245)
[2025-02-18] MEDS: cefepime 2,000 mg SDV 2000 MG IVP (02:33)
[2025-02-18 03:23] LABS: Hematocrit 35.4 % (36-47); Hemoglobin 11.40 g/dL (11.27-16.99); Mean Corpuscular HGB Conc 32.2 g/dL (30-55); Mean Corpuscular Hemoglobin 28.9 pg (27-33); Mean Corpuscular Volume 89.8 fl (85-98); Nucleated Red Blood Cells % 0 %; Platelet Count 449 10^3/cmm (157-399); Red Blood Count 3.94 10^6/uL (3.85-5.65); White Blood Count 12.93 10^3/uL (3.29-11.43)
[2025-02-18 03:57] VITALS: BP 150/73; PULSE 65; RESP 16; TEMP 36.8; O2SAT 97
[2025-02-18 03:59] LABS: Alanine Aminotransferase 28 U/L (0-33); Albumin Level 2.8 g/dL (3.5-5.2); Alkaline Phosphatase 105 U/L (35-105); Anion Gap 14.6 (5-19); Aspartate Amino Transferase 42 U/L (0-32); Blood Urea Nitrogen 10 mg/dL (8-23); Calcium 8.6 mg/dL (8.5-10.5); Carbon Dioxide 26 mmol/L (22-29); Chloride 102 mmol/L (98-107); Globulin 3.0 g/dL (1.3-4.6); Glucose 110 mg/dL (65-115); Osmolality Calculated 288 mOsm/kg (285-295); Potassium 3.6 mmol/L (3.5-5.1); Sodium 139 mmol/L (136-145); Total Protein 5.8 g/dL (6.6-8.7)
[2025-02-18 04:01] LABS: Cholesterol 106 mg/dL (0-200); HDL Cholesterol 28 mg/dL (60-100); Magnesium 1.9 mg/dL (1.7-2.3); Slide Review Slide Review Perform; Triglycerides 188 mg/dL (0-150); VLDL Cholestrol Calculation 38 mg/dL (0-30)
[2025-02-18 04:06] LABS: Creatinine Clr Calc Pharmacy 133.1953
[2025-02-18] MEDS: pantoprazole 40 mg SDV IVP (06:27)
[2025-02-18 07:49] VITALS: BP 154/53; PULSE 70; RESP 16; TEMP 36.4; O2SAT 97
[2025-02-18] MEDS: polyethylene glycol 3350 Pkt 17 gm PO (08:03)
[2025-02-18] MEDS: ATORVASTATIN 10 MG TABLET PO (08:04)
--- NOTE | 2025-02-18 09:16 | P.DS_ITS ---
Discharge Providers Date of Admission: 02/11/25 01:49 Date of Discharge: February 18, 2025 Attending Provider at Admission: Chico Callahan MD Attending Provider at Discharge: Onel Sullivan MD Diagnoses at Discharge Discharge Diagnosis 1. Abdominal abscess: 2. Lower abdominal pain: 3. Internal hernia: 4. Diverticulitis of colon with perforation: Reason for Visit Reason for Visit: Lower ABD Pain Hospital Course Hospital Course Is a 64-year-old female who presented to the hospital with abdominal pain a CT scan of the abdomen showed evidence of possible internal hernia and associated intestinal obstruction, he was taken to the OR by the general surgery team and found to have purulent peritonitis and some questionable small bowel. She was left open to receive resuscitation and return to the OR 24 hours later, on reexploration questionable bowel had completely recover and upon exploration there was noted that there was a perforation at the level of the sigmoid colon likely from acute diverticulitis. She then received a Sheryl procedure. Postoperative course was unremarkable she had good progression, tolerating diet and ambulating by postoperative day 2, laboratory workup have remained stable with only a mild leucocystosis but normal VS. By the day of discharge patient has been ambulating having a productive ostomy with gas and stool and no significant abdominal pain. She was allowed to transition to the outpatient setting and she will return to follow-up with Dr. Callahan next week. LAMONT drain from the abdomen was removed this morning before discharge. Physical Exam Narrative: Abdominal exam is benign the abdomen is soft appropriately tender nondistended good bowel sounds, good healing of the midline laparotomy incision, left lower quadrant colostomy in place and healing well Urinary Catheter Management: Cope Latex: Cath Placed During This Visit: yes, but has since been removed by the nurse Reason for Continuing Indwelling Catheter: Decision to DC Catheter Urinary Catheter Date of Insertion: 02/11/25 Urinary Catheter Time of Insertion: 01:22 Date Urinary Catheter Removed: 02/15/25 Time Urinary Catheter Discontinued: 16:00 Discharge Data Studies Completed and Pending Completed Studies During Hospitalization Category Date Time Status CT abdomen pelvis w con* [id number] Stat Cat Scan 02/10/25 20:[address] head wo con* [id number] Stat Cat Scan 02/13/25 19:45 Completed XR chest 1V portable [id number] Stat Exams 02/11/25 02:19 Completed XR chest 1V portable [id number] Stat Exams 02/11/25 04:03 Completed Pending at discharge Category Date Time Status Anaerobic Culture Routine Lab 02/11/25 01:35 Results MAG [Magnesium] AM LABS Lab 02/19/25 04:00 Ordered MAG [Magnesium] AM LABS Lab 02/20/25 04:00 Ordered Wound Culture and Gram Stain Routine Lab 02/11/25 01:35 Results Pathology: Surgical [PTH] Routine Pth 02/12/25 14:34 Received Radiology Impressions Abdomen/Pelvis CT 02/10/25 20:56 IMPRESSION: Findings most consistent with possible internal hernia in the mid and lower abdomen and upper pelvis This contains small bowel, sigmoid colon and cecum. There are thickened loops of the small bowel and especially sigmoid colon. Sigmoid wall is markedly edematous. There is surrounding stranding and fluid and there maybe some pneumatosis . The antrum of the stomach is also involved. There is a twisting between the body and antrum narrowing partially obstructing stomach. Antrum has thickened wall. There is also reflux from the stomach into the esophagus. 3. Multi fibroid uterus. Centrally maybe mildly dilated intrauterine canal measuring 9 mm Nonemergent surgical consult recommended. ADDENDUM: 02/11/25 0041 The impression should state emergent surgical consult recommended. This discussed with physician. COMMENT: THIS REPORT CONTAINS FINDINGS THAT MAY BE CRITICAL TO PATIENT CARE. The exam findings were verbally communicated by me to JOSH LY via telephone conference at 12:39 AM CDT on 02/11/2025. The findings were acknowledged and understood. Chest X-Ray 02/11/25 04:03 IMPRESSION: Life support lines as described above. Head CT 02/13/25 19:45 IMPRESSION: No definite acute intracranial process. Laboratory Results WBC 12.93 10^3/uL (3.29-11.43) H 02/18/25 02:30 RBC 3.94 10^6/uL (3.85-5.65) 02/18/25 02:30 Hgb 11.40 g/dL (11.27-16.99) 02/18/25 02:30 Hct 35.4 % (36-47) L 02/18/25 02:30 MCV 89.8 fl (85-98) 02/18/25 02:30 MCH 28.9 pg (27-33) 02/18/25 02:30 MCHC 32.2 g/dL (30-55) 02/18/25 02:30 RDW 14.8 % (12.1-15.1) 02/18/25 02:30 Plt Count 449 10^3/cmm (157-399) H D 02/18/25 02:30 MPV 9.7 fL (7.4-10.4) 02/18/25 02:30 Neut % (Auto) 60.6 % 02/18/25 02:30 Lymph % (Auto) 17.4 % 02/18/25 02:30 [place] % (Auto) 8.6 % 02/18/25 02:30 Eos % (Auto) 4.2 % 02/18/25 02:30 Baso % (Auto) 0.8 % 02/18/25 02:30 Neut # (Auto) 7.84 10^3/uL (1.8-7.7) H 02/18/25 02:30 Lymph # (Auto) 2.3 10^3/uL (0.8-4.8) 02/18/25 02:30 [place] # (Auto) 1.1 10^3/uL (0.2-0.9) H 02/18/25 02:30 Eos # (Auto) 0.5 10^3/uL (0.0-0.8) 02/18/25 02:30 Baso # (Auto) 0.1 10^3/uL (0.0-0.1) 02/18/25 02:30 Nucleated RBC % (auto) 0 % 02/18/25 02:30 Total Counted 100 (0-100) 02/17/25 03:02 Atypical Lymphs % 1.0 % (0-5) 02/17/25 03:02 Absolute Neutrophils 5.8 10^3/cmm (1.4-6.5) 02/17/25 03:02 Segmented Neutrophils 53 % 02/17/25 03:02 Band Neutrophils 6.0 % 02/17/25 03:02 Absolute Lymphocytes 1.2 10^3/cmm (1.2-3.4) 02/17/25 03:02 Lymphocytes (Manual) 11 % 02/17/25 03:02 Monocytes (Manual) 18.0 % 02/17/25 03:02 Absolute Monocytes 1.8 10^3/cmm (0.1-0.6) H 02/17/25 03:02 Eosinophils (Manual) 5 % 02/17/25 03:02 Absolute Eosinophils 0.5 10^3/cmm (0.0-0.7) 02/17/25 03:02 Basophils (Manual) 0.0 % 02/17/25 03:02 Absolute Basophils 0.0 10^3/cmm (0.0-0.2) 02/17/25 03:02 Metamyelocytes 2.0 % 02/17/25 03:02 Myelocytes 3.0 % 02/17/25 03:02 Promyelocytes 1.0 % 02/17/25 03:02 Nucleated RBCs # 0.0 /100WBC 02/18/25 02:30 Platelet Estimate Normal (Normal) 02/17/25 03:02 ESR 26 mm/hr (0-15) H 02/11/25 04:07 Specimen Type Arterial 02/13/25 18:49 Sample Site Radial, right 02/13/25 18:49 ABG pH 7.36 (7.35-7.45) 02/13/25 18:49 ABG pCO2 41.1 mmHg (35-45) 02/13/25 18:49 ABG pO2 106.0 mmHg (80.0-100.0) H 02/13/25 18:49 ABG PO2/FiO2 Ratio 327 02/11/25 03:15 ABG HCO3 23.1 mmol/L (22-26) 02/13/25 18:49 ABG O2 Saturation 98.9 02/13/25 18:49 ABG Base Excess -2.3 mmol/L (-2.0-2.0) L 02/13/25 18:49 Hair Test Pos 02/13/25 18:49 A-a O2 Gradient 0.0 mmHg (5-10) L 02/13/25 18:49 Hematocrit 33.9 % (37-47) L 02/13/25 18:49 Hgb O2 Saturation 96.8 % (95-100) 02/13/25 18:49 Carboxyhemoglobin 1.0 %THgb (0.4-20.1) 02/13/25 18:49 Methemoglobin 1.1 % (0.4-1.5) 02/13/25 18:49 Total Hemoglobin 11.1 g/dL (12-16) L 02/13/25 18:49 Sodium 146.0 mmol/L (131-143) H 02/13/25 18:49 Potassium 3.6 mmol/L (3.5-5.0) 02/13/25 18:49 Glucose 118.0 mg/dL (70-115) H 02/13/25 18:49 Ionized Calcium 1.2 mmol/L (1.1-1.4) 02/13/25 18:49 O2 Delivery Device Nc 02/13/25 18:49 O2 Liters/Min 2.0 % 02/13/25 18:49 FiO2 40.0 % 02/11/25 03:15 Tidal Volume 0.40 02/11/25 03:15 PEEP 5.0 cmH20 02/11/25 03:15 Security Delivery Specialist ID [email or web address] 02/13/25 18:49 Sodium 139 mmol/L (136-145) 02/18/25 02:30 Potassium 3.6 mmol/L (3.5-5.1) 02/18/25 02:30 Chloride 102 mmol/L (98-107) 02/18/25 02:30 Carbon Dioxide 26 mmol/L (22-29) 02/18/25 02:30 Anion Gap 14.6 (5-19) 02/18/25 02:30 BUN 10 mg/dL (8-23) 02/18/25 02:30 Creatinine 0.4 mg/dL (0.5-0.9) L 02/18/25 02:30 GFR Calculation 160.7 mL/min (90-130) H 02/18/25 02:30 Glucose 110 mg/dL (65-115) 02/18/25 02:30 POC Glucose 108 mg/dL (70-110) 02/15/25 07:44 Estimat Average Glucose 117 02/17/25 03:02 Hemoglobin A1c 5.7 % (4.0-6.0) 02/17/25 03:02 Calculated Osmolality 288 mOsm/kg (285-295) 02/18/25 02:30 Lactic Acid 1.4 mmol/L (0.5-2.2) 02/10/25 21:03 Lactate 0.9 mmol/L (0.5-2.2) 02/11/25 04:07 Calcium 8.6 mg/dL (8.5-10.5) 02/18/25 02:30 Phosphorus 2.5 mg/dL (2.5-4.5) 02/11/25 04:07 Magnesium 1.9 mg/dL (1.7-2.3) 02/18/25 02:30 Iron 26 ug/dL (37-145) L 02/17/25 03:02 TIBC 143 mcg/dl 02/17/25 03:02 % Saturation 18.1 % (20-50) L 02/17/25 03:02 Unsat Iron Binding 117 ug/dL (112-347) 02/17/25 03:02 Total Bilirubin 0.4 mg/dL (0.15-1.2) 02/18/25 02:30 AST 42 U/L (0-32) H 02/18/25 02:30 ALT 28 U/L (0-33) 02/18/25 02:30 Alkaline Phosphatase 105 U/L (35-105) 02/18/25 02:30 C-Reactive Protein 197.1 mg/L (0.0-4.9) H 02/10/25 21:03 C-React Prot High Sens 26.710 mg/dL (0.0-0.3) H 02/11/25 04:07 Total Protein 5.8 g/dL (6.6-8.7) L 02/18/25 02:30 Albumin 2.8 g/dL (3.5-5.2) L 02/18/25 02:30 Globulin 3.0 g/dL (1.3-4.6) 02/18/25 02:30 Triglycerides 188 mg/dL (0-150) H 02/18/25 02:30 Cholesterol 106 mg/dL (0-200) 02/18/25 02:30 LDL Cholesterol, Calc 40 mg/dL (50-129) L 02/18/25 02:30 Total VLDL Cholesterol 38 mg/dL (0-30) H 02/18/25 02:30 HDL Cholesterol 28 mg/dL (60-100) L 02/18/25 02:30 Cholesterol/HDL Ratio 3.79 mg/dL (0.0-4.40) 02/18/25 02:30 Lipase 10 U/L (13-60) L 02/10/25 21:03 Vitamin B12 > 2000 pg/mL (232-1245) H 02/17/25 03:02 Folate 18.3 ng/mL (4.8-37.3) 02/18/25 02:30 Procalcitonin 0.10 ng/mL (0-0.5) 02/17/25 03:02 TSH 5.09 uIU/mL (0.27-4.20) H 02/17/25 03:02 Urine Color Cuming (Yellow) A 02/10/25 22:20 Urine Appearance Clear (CLEAR) 02/10/25 22:20 Urine pH 5.5 (5-7) 02/10/25 22:20 Ur Specific [place] 1.072 (1.005-1.030) H 02/10/25 22:20 Urine Protein Trace (Negative) A 02/10/25 22:20 Urine Glucose (UA) Negative (Normal) 02/10/25 22:20 Urine Ketones 2+ (Negative) H 02/10/25 22:20 Urine Blood Negative (Negative) 02/10/25 22:20 Urine Nitrate Positive (Negative) A 02/10/25 22:20 Urine Bilirubin 1+ (Negative) H 02/10/25 22:20 Urine Urobilinogen 1.0 mg/dL (Negative) 02/10/25 22:20 Ur Leukocyte Esterase 1+ (Negative) A 02/10/25 22:20 Urine RBC 0-2 /hpf (0-2) 02/10/25 22:20 Urine WBC 0-5 /hpf (0-5) 02/10/25 22:20 Ur Squamous Epith Cells 0-5 /hpf (0-5) 02/10/25 22:20 Urine Bacteria None seen /hpf (NONE) 02/10/25 22:20 Hyaline Casts 0.81 /lpf 02/10/25 22:20 Vitals Last Vital Signs Temp 97.6 F 02/18/25 07:49 Pulse 70 02/18/25 07:49 Resp 16 02/18/25 07:49 BP 154/53 02/18/25 07:49 Pulse Ox 97 02/18/25 07:49 O2 Del Method Room Air 02/18/25 07:49 O2 Flow Rate 2 02/13/25 19:45 FiO2 2 02/13/25 14:00 Discharge Plan Discharge Patient Disposition: Home Condition: Stable Prescriptions: New polyethylene glycol 3350 [Miralax] 17 gram powder in packet 17 g PO DAILY Qty: 30 1RF meloxicam 7.5 mg tablet 7.5 mg PO DAILY 5 Days Qty: 5 0RF amoxicillin-pot clavulanate 875-125 mg tablet 1 tab PO BID 7 Days Qty: 14 0RF Continued atorvastatin [Lipitor] 10 mg tablet 10 mg PO DAILY bisoprolol-hydrochlorothiazide 2.5-6.25 mg tablet 1 tab PO DAILY phenazopyridine [Pyridium] 100 mg tablet 100 mg PO TID PRN (Reason: pain) Qty: 6 0RF Discontinued nitrofurantoin monohyd/m-cryst [Macrobid] 100 mg capsule 100 mg PO Q12H 7 Days Qty: 14 0RF Rx Instructions: must administer with a meal/food Referrals: Chico Callahan MD [Physician, General Surgery] Referral Note: TuesdayFeb 25 Discharge Diet: GI Soft Discharge Activity: Limit activity as instructed Patient Instructions: GI (Gastrointestinal) Soft Diet (DC), Opioid Safety, Patient Portal & [facility] Instructions Activity Restrictions/Additional Instructions: General Instructions: Please do not lift anything heavier than 10 pounds, for the next 4 to 6 weeks. You can walk is much as possible, this will help you recover faster. You can shower, let soap and water run over your wound and then pat dry. Please take your medication as indicated if you are taking opioids please do not forget to take a stool softener Warning signs: Return to the hospital if you have fever, chills, severe abdominal pain that is getting worse over time despite your pain medication or if you start seeing purulence around your ostomy or midline incision. Discharge Attestations Time Spent in Discharge Care*: greater than 30 min Quality Metrics Clinical Quality Measures [ No reported AMI, CVA or VTE this stay] Coding Level of Care Code Acute Code for Chg Fwd Diagnoses Abdominal abscess Lower abdominal pain R10.30 Internal hernia K45.8 Diverticulitis of colon with perforation K57.20
--- NOTE | 2025-02-18 09:20 | PC.NURSE ---
Patient's J-p drain was removed by Dr. Rivas at this time. Patient was educated on changing the colostomy wafer and bag today, when it was changed by this nurse.
[2025-02-18 11:40] VITALS: BP 155/70; PULSE 66; RESP 16; TEMP 36.9; O2SAT 99
--- NOTE | 2025-02-18 12:50 | PC.OT ---
OT TREATMENT HELD PATIENT IS SCHEDULED FOR D/C TODAY
[2025-02-18 14:10] VITALS: BP 155/70; PULSE 66; RESP 16; TEMP 36.9; O2SAT 99
--- NOTE | 2025-02-18 14:12 | PC.NURSE ---
Patient discharged at this time. Patient is A&Ox3. Patient is requesting to ambulate to the personal car. Reviewed discharge instructions with patient and friend including follow up appointments and medications. Patient verbalized understanding.
--- NOTE | 2025-02-18 16:01 | P.PN_ITS ---
Subjective 2 Subjective: No acute events overnight. Patient has remained hemodynamically stable and afebrile. Sitting comfortably in bed. Denies any nausea, vomiting. Vitals/I&O/Wt Last Vital Signs Temp 98.4 F 02/18/25 14:10 Pulse 66 02/18/25 14:10 Resp 16 02/18/25 14:10 BP 155/70 02/18/25 14:10 Pulse Ox 99 02/18/25 14:10 O2 Del Method Room Air 02/18/25 11:40 O2 Flow Rate 2 02/13/25 19:45 FiO2 2 02/13/25 14:00 02/18/25 02/18/25 02/18/25 06:59 14:59 22:59 Intake Total 440 / 1770 600 / 600 Output Total 1350 / 4690 Balance -910 / -2920 600 / 600 Weight last 48 hrs Weight 69.853 kg Weight 74.389 kg Physical Exam 2 Const: COMMON NORMALS: no acute distress, average body habitus, patient oriented x3, no limitations, healthy appearing, alert and well nourished G ENERAL APPEARANCE: cooperative and well developed ORIENTATION/CONSCIOUSNESS: Yes awake, Yes oriented to person, Yes oriented to place and Yes oriented to time HENMT: COMMON NORMALS: oropharynx normal Neck/C-Spine: COMMON NORMALS: no JVD Resp: COMMON NORMALS: normal respiratory effort and clear to auscultation bilaterally AUSCULTATION: clear to auscultation bilaterally Cardio: COMMON NORMALS: no JVD, regular rhythm, S1 normal heart sound present, S2 normal heart sound present and No murmurs present (Cardio) RHYTHM: regular rhythm HEART SOUNDS: S1 normal heart sound present and S2 normal heart sound present GI: COMMON NORMALS: Soft to palpation AUSCULTATION: Yes Hypoactive bowel sounds present PALPATION: Yes Soft to palpation OTHER: Stop dressing, LAMONT drain. Colostomy. Extremity: COMMON NORMALS: no joint enlargement and no pedal edema Neuro: COMMON NORMALS: patient oriented x3 and moves all extremities S ENSORIUM/ORIENTATION: Yes alert, Yes oriented to person, Yes oriented to place and Yes oriented to time Skin: COMMON NORMALS: no rashes or lesions noted GENERAL SKIN EXAM: no rashes or lesions noted Urinary Catheter Management: Cope Latex: Cath Placed During This Visit: yes, but has since been removed by the nurse Reason for Continuing Indwelling Catheter: Decision to DC Catheter Urinary Catheter Date of Insertion: 02/11/25 Urinary Catheter Time of Insertion: 01:22 Date Urinary Catheter Removed: 02/15/25 Time Urinary Catheter Discontinued: 16:00 Data 02/18/25 02:30 02/18/25 02:30 Micro: Microbiology 02/11/25 01:35 Gram Stain - Final Abdomen Anaerobic Culture - Final Bacteroi caccae(b fragilis grp Wound Culture - Final Escherichia coli A&P Assessment and plan 1. Abdominal abscess: 2. Lower abdominal pain: 3. Internal hernia: 4. Diverticulitis of colon with perforation: Plan: Diverticulitis with colonic abscess and ischemia Status post surgical second look on 02/12 s/p colostomy. Discussed with surgery, they are happy with her progress so far. S/p extubation doing well. Passed swallowing evaluation and able to swallow. Proceed diet as tolerated Intake and output monitoring Electrolytes and renal functions monitoring and correction accordingly Hypoactive delirium: Resolved The patient was having hypoactive delirium secondary to effect of sedatives that she was having during intubation and s/p extubation. With better pain control and orientation and supportive measures the patient is better Continue to monitor Small amount of output produced from colostomy. Continue to reassess resumption of bowel function. - Blood culture ordered, preliminary negative - Patient antibiotics tailored according to the wound culture results with cefepime - Clear fluid diet. And increase as tolerated per surgery plan - Adequate analgesia. To continue -High blood pressure: Currently better and controlled Continue amlodipine 5 mg and adequate analgesia and PCP referral at the time of discharge VTE: Enoxaparin 40 subcut daily Diet: Full liquid diet and then to once as tolerated as per surgery plan Plan for the day: Patient stable to be discharged from medical standpoint. Should be discharged on oral antibiotics as per culture sensitivities. Patient will most likely be discharged on Augmentin for 5 to 7-day course. Diet and wound care as per primary team. Should follow-up with PCP as an outpatient. Can be discharged on current l antihypertensive. Med rec appreciated PDMP PDMP Reviewed: Not Reviewed Attestations 2 Medical Necessity Statement*: As per primary team Diagnoses Abdominal abscess Lower abdominal pain R10.30 Internal hernia K45.8 Diverticulitis of colon with perforation K57.20
== END 2025-02-18 14:15 | disposition home or self-care (01) | DRG 329 ==
LOC: ER 20:59 → OR 02-11 00:06 → ICU 02-11 01:51 → MEDSURG 02-15 13:24
PROVIDERS: Internal Medicine; Student in an Organized Health Care Education/Training Program; Admitting Provider Student in an Organized Health Care Education/Training Program; Emergency Provider Emergency Medicine; Visit Provider Surgery
PROC: 0DQV0ZZ Repair Mesentery, Open Approach (ICD-10-PCS; CPT 49000; principal; 2025-02-11 01:00)
PROC: 0D1N0Z4 Bypass Sigmoid Colon to Cutaneous, Open Approach (ICD-10-PCS; CPT 49000; principal; 2025-02-12 14:05)
PROC: 0D1N0Z4 Bypass Sigmoid Colon to Cutaneous, Open Approach (ICD-10-PCS; CPT 44120; 2025-02-12 14:05)
PROC: 0D1N0Z4 Bypass Sigmoid Colon to Cutaneous, Open Approach (ICD-10-PCS; CPT 44320; 2025-02-12 14:05)
DX: K46.0 Unspecified abdominal hernia with obstruction, without gangrene (principal); K65.1 Peritoneal abscess; K57.40 Diverticulitis of both small and large intestine with perforation and abscess without bleeding; F05 Delirium due to known physiological condition; R03.0 Elevated blood-pressure reading, without diagnosis of hypertension; I95.81 Postprocedural hypotension
CPT/HCPCS: 36415; 36416; 36592; 36600; 51702; 70450; 71045; 74177; 80051; 80053; 80061; 81000; 81001; 82330; 82607; 82746; 82805; 82962; 83036; 83540; 83550; 83605; 83690; 83735; 84100; 84145; 84443; 85007; 85025; 85027; 85651; 86140; 86141; 87040; 87070; 87075; 87077; 87086; 87186; 87205; 88309; 92507; 92523; 92526; 92610; 94002; 94003; 94799; 96365; 96372; 96375; 97110; 97116; 97162; 97167; 97530; 99285; A4570; C1751; J0131; J0330; J0692; J1171; J1650; J1885; J1938; J2185; J2250; J2270; J2405; J2470; J2543; J2704; J3010; J3373; J3480; J3490; J7030; J7050; J7120; J9999